=== PATIENT | female | born 1930 | race Caucasian/White ===

== ENCOUNTER 2016-04-30 10:17 | Inpatient (IN) | payer OTHER ==
[~2016-04-30] VITALS: Ht 162.6 cm; Wt 72.6 kg
--- NOTE | 2016-04-30 10:23 | NUR ---
PT C/O HAVING A FEVER AND CONSISTANT DIARRHEA. PT WAS GIVEN FLAGY LAST SUNDAY AND LAST TAKEN SUNDAY PT WAS FINE FOR A COUPLE OF DAYS AND THEN LAST EVENING BEGAN HAVING DIARRHEA AGAIN AND A SLIGHT FEVER. PT HAD FEVER OF 101.5. PT WAS GIVEN A ASA THIS AM AND TEMP WENT DOWN TO 99.0. PT WAS ALSO ON CIPRO FOR A UTI A FEW WEEKS AGO.
[2016-04-30] MEDS ORDERED: FLUOXETINE HCL20 M2 PO (10:26)
[2016-04-30] MEDS ORDERED: LEVOTHYROXINE75 MCG PO (10:27)
[2016-04-30] MEDS ORDERED: DAILY MULTIPLE1 EACH PO (10:27)
[2016-04-30] MEDS ORDERED: METOPROLOL SUCC50 M2 PO (10:27)
--- NOTE | 2016-04-30 10:34 | ED GI/GU/ABDOMINAL COMPLAINT ---
History of Present Illness General Chief Complaint: General Adult Stated Complaint: DIARRHEA/FEVER Source: family Exam Limitations: dementia Vital Signs & Intake/Output Vital Signs & Intake/Output Vital Signs Date Time Temp Pulse Resp B/P Pulse O2 O2 Flow FiO2 Ox Delivery Rate 04/30 1252 96 04/30 1252 99.3 95 16 114/56 96 Room Air 04/30 1129 99.5 04/30 1023 99.5 100 16 126/58 95 Room Air Allergies Coded Allergies: NO KNOWN ALLERGIES (09/02/11) Reconcile Medications Fluoxetine HCl 20 MG CAPSULE 1 CAP PO DAILY MENTAL HEALTH (Reported) Levothyroxine Sodium 75 MCG TABLET 1 TAB PO DAILY AC THYROID (Reported) Metoprolol Succinate 50 MG TAB.ER.24H 1 TAB PO DAILY HEART (Reported) Multivitamin (Daily Multiple Vitamin) 1 EACH TABLET 1 TAB PO DAILY SUPPLEMENT (Reported) Triage Note: PT C/O HAVING A FEVER AND CONSISTANT DIARRHEA. PT WAS GIVEN FLAGY LAST SUNDAY AND LAST TAKEN SUNDAY PT WAS FINE FOR A COUPLE OF DAYS AND THEN LAST EVENING BEGAN HAVING DIARRHEA AGAIN AND A SLIGHT FEVER. PT HAD FEVER OF 101.5. PT WAS GIVEN A ASA THIS AM AND TEMP WENT DOWN TO 99.0. PT WAS ALSO ON CIPRO FOR A UTI A FEW WEEKS AGO. Triage Nurses Notes Reviewed? yes ? N Is pt currently ? No Onset: Gradual Duration: getting worse Timing: recent history Quality/Severity: moderate Severity Numbers: 5 Radiation: no radiation Activities at Onset: none HPI: Patient is an 85-year-old female with past medical history hypertension, depression, hypothyroidism, Alzheimer's who presents emergency room brought in by ambulance with daughter in which patient lives with her daughter in which she states that patient is having loose watery diarrhea production for the past week 8 days ago of fever was noted by daughter which resolved however fever recurred last night and fever continued this morning No blood or melena was noted from the bowel production patient has had a past 24 hours 4-6 episodes of diarrhea Patient was recently prescribed Flagyl for approximately 8 days ago which she finished a course 4 days ago in which this was prescribed by her primary care doctor for the concerns of the diarrhea and fever originally noted 8 days ago Daughter is noting decreased appetite generalized weakness and malaise and unsteady gait 2 days It is noted that approximately 2 weeks ago patient was admitted to [facility] for concerns of urine infection and then was discharged for short -term rehabilitation in which patient currently is residing at her private residence (ISELA SALINAS) Past History Travel History Traveled to [place] past 21 day No Medical History Any Pertinent Medical History? see below for history Cardiovascular: hypertension Psychiatric: depression Endocrine: hypothyroidism Surgical History Surgical History: none Psychosocial History What is your primary language Croatian Tobacco Use: Never used ETOH Use: denies use Illicit Drug Use: denies illicit drug use Family History Hx Contributory? No (ISELA SALINAS) Review of Systems Review of Systems Constitutional: Reports: see HPI, fever, malaise. EENTM: Reports: no symptoms. Respiratory: Reports: no symptoms. Cardiovascular: Reports: no symptoms. GI: Reports: see HPI, diarrhea. Denies: abdominal pain. Genitourinary: Reports: no symptoms. Musculoskeletal: Reports: no symptoms. Skin: Reports: no symptoms. Neurological/Psychological: Reports: no symptoms. Hematologic/Endocrine: Reports: no symptoms. Immunologic/Allergic: Reports: no symptoms. All Other Systems: Reviewed and Negative (ISELA SALINAS) Physical Exam Physical Exam General Appearance: no apparent distress, alert, comfortable Head: atraumatic Eyes: Bilateral: normal appearance, PERRL. Ears, Nose, Throat, Mouth: hearing grossly normal Neck: normal inspection Respiratory: normal breath sounds, chest non-tender Cardiovascular: regular rate/rhythm Gastrointestinal: normal bowel sounds, soft, SUPRAPUBIC POINT TENDERNESS NO REBOUND TENDERNESS NO RIGHT UPPER QUADRANT TENDERNESS NO EPIGASTRIC TENDERNESS Back: normal inspection Extremities: normal range of motion Neurologic/Psych: no motor/sensory deficits Skin: intact, normal color Core Measures ACS in differential dx? No Severe Sepsis Present: No BC x2: Yes Lactic Acid x2: Yes IV ABX Broad Spectrum: Yes NS/LR Started: Yes Septic Shock Present: No (ISELA SALINAS) Progress Differential Diagnosis: AAA, AMI, appendicitis, biliary colic, bowel obstruction , colon cancer, cholecystitis, diverticulitis, endometritis, esophageal varices, gastritis, hepatitis, hernia, hemorrhoids, ischemic bowel, inflamm bowel dis, kidney stone, Glory-Red tear, ovarian cyst, ovarian torsion, pancreatitis, PID/cervicitis, peptic ulcer, PUD/GERD, perforated viscous, SBO, UTI/pyelo Plan of Care: Orders Procedure Date/time Status Regular Diet 05/01 D Active LACTIC ACID 04/30 1348 Active OXYGEN SETUP (GEN) 04/30 1335 Active Saline Lock 04/30 1335 Active Admit to inpatient 04/30 1335 Active Vital Signs 04/30 1335 Active Activity/Ambulation 04/30 1335 Active Code Status 04/30 1335 Active Patient Data 04/30 1322 Active EKG 04/30 1312 Active Intake & Output 04/30 1130 Active C.DIFFICILE 04/30 1050 Active Straight Cath 04/30 1048 Active CULTURE,URINE 04/30 1048 Active CULTURE,STOOL 04/30 1048 Active BLOOD CULTURE 04/30 1048 Active URINALYSIS 04/30 1048 Complete THYROID STIMULATING HORMONE 04/30 1048 Complete MAGNESIUM 04/30 1048 Complete LACTIC ACID 04/30 1048 Complete FREE T4 04/30 1048 Complete COMPREHENSIVE METABOLIC PANEL 04/30 1048 Complete CBC WITHOUT DIFFERENTIAL 04/30 1048 Complete Current Medications Sig/Christina Start time Last Medication Dose Stop Time Status Admin Metronidazole 500 MG ONCE ONE 04/30 1315 AC (Flagyl) 04/30 1414 N/A 1 UNIT (No Carrier) Laboratory Tests 04/30/16 1140: Urinalysis LIGHT H, Urine Color YEL, Urine Clarity CLEAR, Urine pH 6.0, Ur Specific [place] 1.015, Urine Protein TRACE H, Urine Ketones NEG, Urine Nitrite NEG, Urine Bilirubin NEG, Urine Urobilinogen 0.2, Ur Leukocyte Esterase NEG, Ur Microscopic SEDIMENT EXAMINED, Urine RBC 25-50 H, Urine WBC RARE, Ur Epithelial Cells RARE, Urine Hemoglobin MOD H, Urine Glucose NEG 04/30/16 1118: Anion Gap 8, Estimated GFR 53 L, BUN/Creatinine Ratio 8.0, Glucose 101 H, Lactic Acid 1.6, Calcium 8.2 L, Magnesium 1.7, Total Bilirubin 0.6, AST 23, ALT 36, Alkaline Phosphatase 46, Total Protein 5.6 L, Albumin 2.9 L, Globulin 2.7, Albumin/Globulin Ratio 1.1, TSH 1.080, Free T4 1.53, CBC w Diff NO MAN DIFF REQ, RBC 3.68 L, MCV 88.7, MCH 29.2, RDW 14.1, MPV 7.1 L, Gran % 82.2 H, Lymphocytes % 9.4 L, Monocytes % 8.0, Eosinophils % 0.2, Basophils % 0.2, Absolute Granulocytes 10.3 H, Absolute Lymphocytes 1.2, Absolute Monocytes 1.0 H, Absolute Eosinophils 0, Absolute Basophils 0, PUBS MCHC 32.9 L Microbiology 04/30 1140 URINE ROUT: Urine Culture - RECD 04/30 1050 STOOL: Clostridium difficile Toxin A & B - ORD 04/30 1048 STOOL: Stool Culture - ORD 04/30 1048 BLOOD: Blood Culture - ORD 04/30 1048 BLOOD: Blood Culture - ORD Patient currently is at rest in no apparent distress. Patient did develop a fever while in the emergency room which IV acetaminophen was administered along with normal saline. At this time patient shows no concerns of severe sepsis and which I had a long CONVERSATION with the patient's daughter and which due to patient's unresolved diverticulitis previously prescribed with Flagyl and patient's fevers denies weakness fatigue decreased by mouth intake in comorbidities and age the patient will require admission and require IV antibiotics Patient has failed outpatient treatment for presenting diagnosis Discussed admission with Dr. BEEBE who agrees (GURJIT CARR,ISELA) Diagnostic Imaging: Viewed by Me: CT Scan. Radiology Impression: acute abnormality Initial ED EKG: SINUS RHYTHM NOTED 94 BPM Prior EKG: unchanged Comments: PATIENT: ANSHUL LUNA PRESENT AGE: 85 PATIENT ACCOUNT NO: [id number] : 32 LOCATION: [facility] ORDERING PHYSICIAN: ISELA CARR SERVICE DATE: 04/30/16 EXAM TYPE: CAT - CT ABD & PELVIS W/O IV CONTRAS EXAMINATION: CT ABDOMEN AND PELVIS WITHOUT CONTRAST CLINICAL INFORMATION: Abdominal pain and diarrhea. Evaluate for toxic megacolon. COMPARISON: CT scan of the abdomen and pelvis dated 11/21/2006 and renal ultrasound dated 11/21/2006. TECHNIQUE: Multidetector volumetric imaging was performed from the superior aspect of the liver through the pubic symphysis. Sagittal and coronal reformatted images were obtained on the technologist workstation. DLP: 408.11 mGy-cm. FINDINGS: LUNG BASES: The visualized lung bases are unremarkable. LIVER, GALLBLADDER, AND BILIARY TREE: The liver is normal in size, shape, and attenuation. No focal hepatic lesion on noncontrast imaging. The low-attenuation mass previously seen in the left lobe of the liver is not appreciated on noncontrast study. There is a tiny calcification along the capsular the liver dome. No biliary ductal dilatation is present. The gallbladder is well distended and unremarkable with no evidence of radiopaque gallstones, gallbladder wall thickening, or obvious pericholecystic inflammatory changes. PANCREAS, SPLEEN, ADRENAL GLANDS: There is a chronic peripheral 1.4 x 1.0 cm rim calcified subcapsular mass in the spleen, similar to the prior study, likely sequelae of previous infarct or injury. Spleen otherwise unremarkable. Pancreas and both adrenal glands unremarkable on noncontrast imaging. KIDNEYS AND URETERS: The kidneys are normal in size, shape, and attenuation. No hydronephrosis, hydroureter, or renal/ureteral calculi seen. No perinephric stranding. BLADDER: Partially distended and unremarkable. GASTROINTESTINAL TRACT: There is a moderate size retrocardiac hiatal hernia, containing the gastric fundus. The small loops are decompressed and are unremarkable. There is moderate sigmoid colonic diverticulosis with mild thickening of the sigmoid colon wall and mild surrounding fat stranding, consistent with mild acute diverticulitis. Remainder of the colon is unremarkable. The appendix is not discretely visualized. ABDOMINAL WALL: There is a tiny fat-containing umbilical hernia. LYMPH NODES, VASCULAR: No significant abdominal or pelvic adenopathy or free fluid collection is seen. Abdominal aorta is normal in caliber and demonstrates severe atherosclerotic calcifications, which also involve several of the branch vessels. PELVIC VISCERA: Unremarkable. OSSEOUS STRUCTURES: Mild lumbar dextroscoliosis is seen with severe degenerative disc disease throughout the lumbar spine. Diffuse osteopenia is present. Prominent Schmorl's nodes are noted at T12, L1 L1 and L2. IMPRESSION: 1. Mild sigmoid colonic diverticulitis. No evidence of perforation, abscess or bowel obstruction. 2. No evidence of toxic megacolon. 3. Previously seen small low-attenuation mass in the left lobe of liver not identified on current noncontrast exam. 4. Moderate size retrocardiac hiatal hernia and tiny fat-containing umbilical hernia. 5. Severe atherosclerotic vascular calcifications. (ISELA SALINAS) Departure Departure Disposition: STILL A PATIENT Condition: Stable Clinical Impression Primary Impression: Diverticulitis Referrals: MELCHOR PEREZ,PARISH (PCP/Family) Departure Forms: Customer Survey General Discharge Information Admission Note Spoke With: SHERI SMITH MD Documentation of Exam: Documentation of any treatments & extenuating circumstances including Concerns Regarding Discharge (functional status, medication knowledge or non-compliance, living conditions, etc.) that warrant an admission rather than observation: [ Discussed patient with Dr. SMITH who agrees with general medicine admission for concerns of diverticulitis in which patient has failed outpatient treatment with previously prescribed antibiotics. Patient requires IV antibiotics, GI consultation, IV Fluid Resuscitation, Blood Cultures Currently Pending. Outpatient Treatment at This Time Would Be Medically Harmful] (ISELA SALINAS) PA/STERILE PROCESS TECH Co-Sign Statement Statement: ED Attending supervision documentation- x I saw and evaluated the patient. I have also reviewed all the pertinent lab results and diagnostic results. I agree with the findings and the plan of care as documented in the PA's/STERILE PROCESS TECH's documentation. [] I have reviewed the ED Record and agree with the PA's/STERILE PROCESS TECH's documentation. [] Additions or exceptions (if any) to the PAs/STERILE PROCESS TECH's note and plan are summarized below: [] (CONCEPCIÓN PEREZ,IKER) Critical Care Note Critical Care Note Critical Care Time: 30-74 min (ISELA SALINAS)
[2016-04-30 11:25] LABS: ABSOLUTE BASOPHIL COUNT 0 /CUMM (0.0-0.2); ABSOLUTE EOSINOPHIL COUNT 0 /CUMM (0.0-0.7); ABSOLUTE GRANULOCYTE CT 10.3 /CUMM (1.4-6.5); ABSOLUTE LYMPH COUNT 1.2 /CUMM (1.2-3.4); BASOPHIL % 0.2 % (0.0-2.0); EOSINOPHIL % 0.2 % (0-5); GRANULOCYTE % 82.2 % (42.2-75.2); HEMATOCRIT 32.6 % (37-47); MEAN CORPUSCULAR HGB 29.2 PG (27.0-31.0); MEAN CORPUSCULAR HGB CONC 32.9 G/DL (33.0-37.0); MEAN CORPUSCULAR VOLUME 88.7 FL (81.0-99.0); MEAN PLATELET VOLUME 7.1 FL (7.4-10.4); PLATELET COUNT 239 /CUMM (130-400); RBC DISTRIBUTION WIDTH 14.1 % (11.5-14.5); RED BLOOD CELL CT 3.68 /CUMM (4.20-5.40); WHITE BLOOD CELL COUNT 12.5 /CUMM (4.8-10.8)
--- NOTE | 2016-04-30 11:29 | NUR ---
IV ESTABLISHED PT RECEIVING IV TYLENOL FOR FEVER
--- NOTE | 2016-04-30 11:41 | NUR ---
ST. CATH URINE OBTAINED
--- NOTE | 2016-04-30 12:03 | NUR ---
PT TO CAT SCAN
--- NOTE | 2016-04-30 13:00 | CT SCAN REPORT ---
EXAMINATION: CT ABDOMEN AND PELVIS WITHOUT CONTRAST CLINICAL INFORMATION: Abdominal pain and diarrhea. Evaluate for toxic megacolon. COMPARISON: CT scan of the abdomen and pelvis dated 11/21/2006 and renal ultrasound dated 11/21/2006. TECHNIQUE: Multidetector volumetric imaging was performed from the superior aspect of the liver through the pubic symphysis. Sagittal and coronal reformatted images were obtained on the technologist workstation. DLP: 408.11 mGy-cm. FINDINGS: LUNG BASES: The visualized lung bases are unremarkable. LIVER, GALLBLADDER, AND BILIARY TREE: The liver is normal in size, shape, and attenuation. No focal hepatic lesion on noncontrast imaging. The low-attenuation mass previously seen in the left lobe of the liver is not appreciated on noncontrast study. There is a tiny calcification along the capsular the liver dome. No biliary ductal dilatation is present. The gallbladder is well distended and unremarkable with no evidence of radiopaque gallstones, gallbladder wall thickening, or obvious pericholecystic inflammatory changes. PANCREAS, SPLEEN, ADRENAL GLANDS: There is a chronic peripheral 1.4 x 1.0 cm rim calcified subcapsular mass in the spleen, similar to the prior study, likely sequelae of previous infarct or injury. Spleen otherwise unremarkable. Pancreas and both adrenal glands unremarkable on noncontrast imaging. KIDNEYS AND URETERS: The kidneys are normal in size, shape, and attenuation. No hydronephrosis, hydroureter, or renal/ureteral calculi seen. No perinephric stranding. BLADDER: Partially distended and unremarkable. GASTROINTESTINAL TRACT: There is a moderate size retrocardiac hiatal hernia, containing the gastric fundus. The small loops are decompressed and are unremarkable. There is moderate sigmoid colonic diverticulosis with mild thickening of the sigmoid colon wall and mild surrounding fat stranding, consistent with mild acute diverticulitis. Remainder of the colon is unremarkable. The appendix is not discretely visualized. ABDOMINAL WALL: There is a tiny fat-containing umbilical hernia. LYMPH NODES, VASCULAR: No significant abdominal or pelvic adenopathy or free fluid collection is seen. Abdominal aorta is normal in caliber and demonstrates severe atherosclerotic calcifications, which also involve several of the branch vessels. PELVIC VISCERA: Unremarkable. OSSEOUS STRUCTURES: Mild lumbar dextroscoliosis is seen with severe degenerative disc disease throughout the lumbar spine. Diffuse osteopenia is present. Prominent Schmorl's nodes are noted at T12, L1 L1 and L2. IMPRESSION: 1. Mild sigmoid colonic diverticulitis. No evidence of perforation, abscess or bowel obstruction. 2. No evidence of toxic megacolon. 3. Previously seen small low-attenuation mass in the left lobe of liver not identified on current noncontrast exam. 4. Moderate size retrocardiac hiatal hernia and tiny fat-containing umbilical hernia. 5. Severe atherosclerotic vascular calcifications.
--- NOTE | 2016-04-30 14:21 | NUR ---
IV ABX DIRECTED STOOL SPEC. SENT
--- NOTE | 2016-04-30 14:43 | NUR ---
PT HAS BED ASSIGNMENT 213-1
--- NOTE | 2016-04-30 14:43 | History & Physical ---
SWATHI PEREZ,ELIZABETH 04/30/16 1442: General Information and HPI MD Statement: I have seen and personally examined ANSHUL LUNA and documented this H&P. The patient is a 85 year old F who presented with a patient stated chief complaint of [diarrhea and fever]. Source of Information: patient, old records History of Present Illness: This is a 84-year-old female with a past medical history of hypertension, Alzheimer's disease, hypothyroidism who presented to the [facility] emergency department with persistent diarrhea and fever. The patient recently was admitted to [facility] from 04/13/2016 to 04/15/2016 for urinary tract infection and fall. At that time she was treated for 3 days of by mouth ciprofloxacin and discharged to the rehabilitation. After that she started having diarrhea and was then treated for supposedly C. difficile with by mouth Flagyl for 5 days which was completed on 04/25/2016. Today in the morning the patient felt febrile again and she had persistent diarrhea with mild abdominal discomfort. She noticed that her appetite has also decreased. She didn't have any episodes of vomiting or diarrhea. She was brought to the emergency department by her daughter. NSR the patient the patient was awake alert oriented and was not in any discomfort. Allergies/Medications Allergies: Coded Allergies: NO KNOWN ALLERGIES (09/02/11) Home Med list Fluoxetine HCl 20 MG CAPSULE 1 CAP PO DAILY MENTAL HEALTH (Reported) Levothyroxine Sodium 75 MCG TABLET 1 TAB PO DAILY AC THYROID (Reported) Metoprolol Succinate 50 MG TAB.ER.24H 1 TAB PO DAILY HEART (Reported) Multivitamin (Daily Multiple Vitamin) 1 EACH TABLET 1 TAB PO DAILY SUPPLEMENT (Reported) Compliance With Home Meds: GOOD Past History Travel History Traveled to [place] past 21 day No Medical History Cardiovascular: hypertension Psychiatric: depression Endocrine: hypothyroidism Surgical History Surgical History: none Past Family/Social History Family History Relations & Conditions if any Relation not specified for: FH: hypertension Psychosocial History Where do you live? Home Who Do You Live With? child Services at Home: None Smoking Status: Never Smoked ETOH Use: denies use Illicit Drug Use: denies illicit drug use Review of Systems Review of Systems Constitutional: Reports: see HPI. Respiratory: Denies: cough, hemoptysis, orthopnea, short of breath. GI: Reports: abdominal pain, diarrhea, nausea. Denies: constipation, vomiting. Genitourinary: Denies: discharge, dysuria, frequency, hematuria. Musculoskeletal: Denies: see HPI, back pain, gout. Skin: Denies: change in skin color, change in hair/nails, erythema. Exam & Diagnostic Data Last 24 Hrs of Vital Signs/I&O Vital Signs Date Time Temp Pulse Resp B/P Pulse O2 O2 Flow FiO2 Ox Delivery Rate 04/30 1252 96 04/30 1252 99.3 95 16 114/56 96 Room Air 04/30 1230 99.1 04/30 1129 99.5 04/30 1023 99.5 100 16 126/58 95 Room Air Intake & Output 04/30 1600 04/30 0800 04/30 0000 Intake Total 100 Output Total Balance 100 Intake, IV 100 Patient 174 lb Weight Physical Exam General Appearance Alert, Oriented X3, Cooperative Skin No Rashes, No Breakdown HEENT Atraumatic, PERRLA Neck Supple, No JVD, No thryomegaly Lymphatic Axillary nl, Cervical nl Cardiovascular Regular Rate, Normal S1, Normal S2 Lungs Clear to Auscultation, Normal Air Movement Abdomen Normal Bowel Sounds, Soft, No Tenderness, No Hepatospenomegaly Neurological Normal Gait, Normal Speech, Strength at 5/5 X4 Ext Extremities No Clubbing, No Cyanosis, No Edema Assessment/Plan Assessment: Past medical history of hypertension, hypothyroidism, as I'm his disease who presented to the [facility] with persistent diarrhea and slight abdominal pain. The patient was recently treated for UTI and possibly C. difficile for total of 5 days? Vitals at the time of admission shows Temperature of 100.3, blood pressure 113/53, respiration rate of 18, pulse rate of 92 WBC 12.5,, hemoglobin of 10.7, hematocrit of 32.6. CT Pelvis showed: 1. Mild sigmoid colonic diverticulitis. No evidence of perforation, abscess or bowel obstruction. 2. No evidence of toxic megacolon. 3. Previously seen small low-attenuation mass in the left lobe of liver not identified on current noncontrast exam. 4. Moderate size retrocardiac hiatal hernia and tiny fat-containing umbilical hernia. 5. Severe atherosclerotic vascular calcifications. Assessment 1. Acute diverticulitis 2 suspicion of acute C. difficile colitis considering the patient has acute diarrhea and elevated WBC in the setting of recent antibiotics use 3. Chronic hypothyroidism 4. Chronic hypertension History of depression PLAN: Plan admit the patient to general medicine floor We will send blood cultures, urine cultures and stool for C. difficile We will start the patient on IV ciprofloxacin 400 mg every 12 and IV Flagyl 500 mg every 8 IV normal saline at 75 mL per hour Bowel rest and nothing by mouth and then reassses in am [facility] Records were verified from [facility] but the need for the patient to be on 5 days of metronidazole recently is still not clear, need further evaluation by the patient's primary care physician(dr Tamiko roche) Continue with levothyroxine and fluoxetine DVT prophylaxis at all times PAIN PATHWAYS FULL CODE. As Ranked By This Provider Problem List: 1. Diverticulitis Core Measures/Miscellaneous Acute Coronary Syndrome ACS Diagnosis: No Cerebrovascular Accident CVA/TIA Diagnosis: No Congestive Heart Failure CHF Diagnosis: No Venous Thromboembolism VTE Risk Factors: Age > 40, Cancer/chemo/oth therapy VTE Prophylaxis Ordered Inpt: Pharm- Lovenox No Mech VTE prophylaxis d/t: No contraindications No VTE Pharm Prophylaxis d/t: No contraindications VTE Diagnosis: No VTE Type: NONE VTE Confirmed by (Test): NONE Severe Sepsis Severe Sepsis Present: No BC x2: Yes Lactic Acid x2: Yes IV ABX Broad Spectrum: Yes NS/LR Started: Yes Septic Shock Septic Shock Present: No Miscellaneous Documentation Attending Case Discussed With: SHERI SMITH MD Primary Care Physician: TAMIKO ROCHE MD Patient sees these Specialists NONE Level of Patient Care: General Medicine SHERI SMITH MD 04/30/162: Attending MD Review Statement Attending Statement Attending MD Statement: examined this patient, discuss w/resident/PA/EVS ATTENDANT, agreed w/resident/PA/EVS ATTENDANT, reviewed EMR data (avail) Attending Assessment/Plan: 85F PMH HTN, GERD, Alzheimer's dementia, recently discharged from [facility] 04/15 after treatment for UTI with Cipro and fall, with outpatient treatment with Flagyl for diarrhea (no documented positive C.diff test), presenting with 4 days of fever and persistent diarrhea, found to have acute diverticulitis on CT abdomen. Mild abdominal pain, soft abdomen, febrile 100.5, WBC 12.3, normal renal function, no evidence of perforation. 1. Acute diverticulitis 2. Infectious diarrhea 3. Alzheimer's dementia 4. Neutrophilia Plan - Admit to general medicine - Gentle IV hydration - NPO overnight - Start Ceftriaxone and Flagyl - Send C.diff - Send stool and blood cultures - Continue home medications - Serial abdominal exams - DVT PPx
--- NOTE | 2016-04-30 15:20 | NUR ---
REPORT GIVEN TO RAJINDER AUGUSTIN
[2016-04-30 16:00] VITALS: BP 128/50
--- NOTE | 2016-04-30 16:12 | NUR ---
REPORT GIVEN TO DEMETRIA YO. [employer] CALLED FOR PT TRANSPORT.
--- NOTE | 2016-04-30 16:13 | NUR ---
PHARMACY CALLED TO RE-TIME ROCPEHIN AND FLAGYL LAST GIVEN AT 1419. DOSE ORDERED FOR 1600 NOT GIVEN BY THIS RN. NS HUNG AT 75ML/HR AT THIS TIME.
--- NOTE | 2016-04-30 19:16 | Admission Certification ---
Admission Certification Certification Statement - As attending physician, I certify that at the time of - admission, based on clinical presentation, severity of - symptoms, need for further diagnostic testing and - therapeutic interventions, and risk of adverse outcomes - without in-hospital treatment, in my clinical assessment, - this patient requires an acute hospital stay for a minimum - of two nights or longer. I have also considered psychsocial - factors such as support system, advanced age, financial - issues, cognitive issues, and failed out-patient treatments, - past re-admission history, safety of patient, and lack of - compliance as applicable. Specific rationale supporting this admission is: Acute diverticulitis failing outpatient therapy
[2016-04-30 23:53] VITALS: BP 112/40; BP 128/42
[2016-05-01 05:26] VITALS: BP 208/84
--- NOTE | 2016-05-01 05:34 | Event Note ---
Event Note Event Note: Situation Rapid response called at around 5:50am in the setting of tachycarida and high blood pressure. Brief: * Patient is admitted with diverticulitis and questionable C.diff, started on IV ceftriaxone and flagyl. However today morining she is found to have a BP of 208/ 84mmHg with HR of 138, Temp of 101.9 on room air. A rapid response is called. * Patient is moaning and mentating fine, unable to answer questions. * Upon examination found to have rapid pulse, regular, abdominal guarding present with hyperactive bowel sounds. She had passed stool in the bed ( incontinent) during examination. EKG revealed sinus tachycardia. A single dose of IV metoprolol 5mg along IV Tylenol is given with a quality assurance monitor body attached. A repeat vitals after 5min reveled BP of 164/78mmHg with HR of 100. She started responding to commands, alert and oriented. Assessment and Plan 1. Suspected worsening of her bowel inflammation vs abscess in the abdomen 2. A set of labs including CBC, ICU bundle, Troponin and EKG, lactic acid are requested. 3. CT abdomen to assess any acute complications including perforation 4. Patient is transferred to ICU for close monitoring of vitals. family is updated about the transfer. The above plan is in agreement with my resident parviz and myself (taye)
[2016-05-01 06:00] VITALS: BP 164/78
--- NOTE | 2016-05-01 06:02 | NUR ---
0525 PATIENT APPEARED RESTLESS, CONFUSION/AMS AT BASELINE, RESP RATE OF 44, HR 138, O2 93%, BP 208/84, TEMP 103.5 RECTAL. RAPID RESPONSE CALLED. COMPUTERIZED MILL MILL RECORDER CHIDI, RESIDENTS REBEL AND DUNCAN IN ROOM TO SEE PATIENT. ICU NURSE ADMINISTERED IV LOPRESSOR. 0600 HR 102, BP 164/78, RESP 38.
--- NOTE | 2016-05-01 07:00 | NUR ---
PATIENT TRANSPORTED TO CAT SCAN WITH THIS NURSE AND MONITOR FROM 2N.TO ICU [address] SCAN. PATIENT ALERT.ORIENTED TO PERSON. FORGETS SHE IS IN THE HOSPITAL.MONITOR SINUS RHYTHM WITH PVCS.MANUAL GM=752/50.TEMP=98.3.
--- NOTE | 2016-05-01 07:27 | CT SCAN REPORT ---
EXAMINATION: CT ABDOMEN AND PELVIS WITHOUT CONTRAST CLINICAL INFORMATION: Abdominal pain and diarrhea. Suspected diverticulitis. COMPARISON: CT abdomen and pelvis 04/30/2016. TECHNIQUE: Multidetector volumetric imaging was performed from the superior aspect of the liver through the pubic symphysis. Sagittal and coronal reformatted images were obtained on the technologist's workstation. The study is limited by artifact from the patient's arms overlying the abdomen. DLP: 473.70 mGy-cm. FINDINGS: LUNG BASES: The lung bases are clear. There is minor linear atelectasis at the left base. Coronary artery calcification is seen. LIVER, GALLBLADDER, AND BILIARY TREE: The liver is normal in size, shape, and attenuation. No focal hepatic lesion or biliary ductal dilatation is present. The gallbladder is distended with no manifestations of gallbladder wall thickening or pericholecystic fluid. PANCREAS: Unremarkable. SPLEEN: The spleen is unremarkable with a unchanged focal calcification in the lateral margin of the spleen. ADRENAL GLANDS: Unremarkable. KIDNEYS AND URETERS: The kidneys are normal in size, shape, and attenuation. No hydronephrosis, hydroureter, or calculi seen. No perinephric stranding. BLADDER: Unremarkable. GASTROINTESTINAL TRACT: Moderate hiatal hernia is demonstrated without change. No evidence of bowel obstruction. Moderate diverticulosis is seen most notable in the sigmoid colon. There is mild thickening of the sigmoid colon. There is mild soft tissue stranding lateral to the proximal sigmoid colon without other well-defined features of diverticulitis. No evidence of extraluminal air or fluid collections. There is a suggestion of mild thickening of the cecum and ascending colon. ABDOMINAL WALL: No significant hernia is appreciated. LYMPH NODES: Normal. VASCULAR: Moderately extensive vascular calcification is seen with mild ectasia of the abdominal aorta. No interval change. PELVIC VISCERA: Unremarkable. OSSEOUS STRUCTURES: Multilevel degenerative changes are again seen in the lumbar spine. IMPRESSION: 1. Moderate diverticulosis most notable in the sigmoid colon. Mild soft tissue stranding could reflect subtle manifestations of diverticulitis. There are no manifestations of extraluminal fluid collection or extraluminal air. 2. Mild thickening of the sigmoid colon is also associated with mild thickening of the right colon and the findings could also reflect manifestations of a colitis unrelated to diverticular disease. 3. No significant change from prior. The current study is limited by artifact from the patient's arms.
[2016-05-01 08:00] VITALS: BP 110/82
[2016-05-01 08:16] LABS: ABSOLUTE BASOPHIL COUNT 0 /CUMM (0.0-0.2); ABSOLUTE EOSINOPHIL COUNT 0 /CUMM (0.0-0.7); ABSOLUTE GRANULOCYTE CT 16.9 /CUMM (1.4-6.5); ABSOLUTE LYMPH COUNT 0.7 /CUMM (1.2-3.4); BASOPHIL % 0.1 % (0.0-2.0); EOSINOPHIL % 0 % (0-5); GRANULOCYTE % 90.7 % (42.2-75.2); MEAN CORPUSCULAR HGB 29.7 PG (27.0-31.0); MEAN CORPUSCULAR HGB CONC 33.5 G/DL (33.0-37.0); MEAN CORPUSCULAR VOLUME 88.6 FL (81.0-99.0); MEAN PLATELET VOLUME 7.7 FL (7.4-10.4); PLATELET COUNT 225 /CUMM (130-400); RBC DISTRIBUTION WIDTH 14.4 % (11.5-14.5); RED BLOOD CELL CT 3.39 /CUMM (4.20-5.40); WHITE BLOOD CELL COUNT 18.7 /CUMM (4.8-10.8)
--- NOTE | 2016-05-01 10:14 | Cons- CRCU ---
CRISTINE PEREZ,[facility] 05/01/16 1014: General Information and HPI Consulting Request Date of Consult: 05/01/16 Reason for Consult: Pt has diverticulitis overnight was found to have BP of 208/84mmHg with HR of 138, Temp of 101.9 Source of Information: patient, old records Exam Limitations: no limitations History of Present Illness: 84/F with PMH of HTN, Alzheimer's disease, hypothyroidism who presented with persistent diarrhea and fever. The patient recently discharged from [facility] (04/15/2016) after she was treated with ciprofloxacin for UTI. Patient returned to the hospital soon after complaining of diarrhea and was treated for C. difficile with by mouth Flagyl for 5 days which was completed on 04/25/2016.( no documented positive C.diff test). On the day of admission patient presented with watery diarrhea for one week, felt febrile, started to complaining of abdominal discomfort, and poor appetite. Patient was initially admitted to the general medicine floor, after she was found to have diverticulitis on CT. That time her vitals was within normal limits except her temperature which was 100.3. Stool and blood cultures was sent , C. difficile was sent, patient was nothing by mouth for bowel rest, she was started on Ceftriaxone and Flagy Allergies/Medications Allergies: Coded Allergies: NO KNOWN ALLERGIES (09/02/11) Home Med List: Fluoxetine HCl 20 MG CAPSULE 1 CAP PO DAILY MENTAL HEALTH (Reported) Levothyroxine Sodium 75 MCG TABLET 1 TAB PO DAILY AC THYROID (Reported) Metoprolol Succinate 50 MG TAB.ER.24H 1 TAB PO DAILY HEART (Reported) Multivitamin (Daily Multiple Vitamin) 1 EACH TABLET 1 TAB PO DAILY SUPPLEMENT (Reported) Review of Systems Review of Systems Constitutional: Reports: see HPI. Denies: chills, fever. Cardiovascular: Denies: chest pain, palpitations, peripheral edema. Respiratory: Denies: cough, short of breath, wheezing. GI: Reports: diarrhea. Denies: abdominal pain, constipation, distention, nausea, vomiting. Genitourinary: Denies: dysuria. Past History Travel History Traveled to [place] past 21 day No Medical History Neurological: Alzheimer's disease Cardiovascular: hypertension Respiratory: NONE Gastrointestinal: diverticulitis Hepatic: NONE Renal: NONE Musculoskeletal: falls Psychiatric: depression Endocrine: hypothyroidism Blood Disorders: NONE Cancer(s): NONE Surgical History Surgical History: 1 Family History Relations & Conditions If Any: Relation not specified for: FH: hypertension Psychosocial History Where Do You Live? Home Who Do You Live With? child Services at Home: None Smoking Status: Never Smoked ETOH Use: denies use Illicit Drug Use: denies illicit drug use Exam & Diagnostic Data Last 24 Hrs of Vital Signs/I&O Vital Signs Date Time Temp Pulse Resp B/P Pulse O2 O2 Flow FiO2 Ox Delivery Rate 05/01 0854 97 Nasal 2.0L Cannula 05/01 0600 102 38 164/78 94 Room Air Room Air 05/01 0551 103.0 05/01 0550 134 204/90 05/01 0533 93 Room Air 05/01 0526 103.5 138 44 208/84 93 Room Air Room Air 04/30 2353 99.2 107 18 112/40 96 Room Air 04/30 1600 994.0 95 19 128/50 95 Room Air 04/30 1559 100.5 04/30 1520 100.3 92 18 113/53 97 Room Air 04/30 1252 96 04/30 1252 99.3 95 16 114/56 96 Room Air 04/30 1230 99.1 Intake & Output 05/01 1600 05/01 0800 05/01 0000 Intake Total 450 465 Output Total 200 Balance 250 465 Intake, IV 450 225 Intake, Oral 240 Output, Urine 200 Patient 72.575 kg Weight Physical Exam General Appearance: well developed/nourished, no apparent distress, alert, awake , comfortable Head: atraumatic, normal appearance Eyes: Bilateral: normal appearance, PERRL, EOMI. Neck: normal inspection Respiratory: normal breath sounds, chest non-tender Cardiovascular: regular rate/rhythm Gastrointestinal: soft, non-tender, incrase bowel sound Extremities: normal inspection, no edema Neurologic/Psych: awake, alert, patinet is has baseline dementia Last 48 Hrs of Labs/Ovidio: Laboratory Tests 05/01/16 0945: Lactic Acid 1.7 05/01/16 0615: Lactic Acid Cancelled, Troponin I Cancelled 05/01/16 0615: Sodium Cancelled, Potassium Cancelled, Chloride Cancelled, Carbon Dioxide Cancelled, Anion Gap Cancelled, BUN Cancelled, Creatinine Cancelled, BUN/ Creatinine Ratio Cancelled 05/01/16 0615: Anion Gap 12, Estimated GFR 43 L, BUN/Creatinine Ratio 7.5, Lactic Acid 2.3 H, Phosphorus 2.8, Magnesium 1.4 L, Total Bilirubin 0.5, Direct Bilirubin 0.3, AST 17, ALT 24, Alkaline Phosphatase 50, Troponin I 0.05, Total Protein 5.1 L, Albumin 2.6 L, CBC w Diff MAN DIFF ORDERED, RBC 3.39 L, MCV 88.6, MCH 29.7, RDW 14.4, MPV 7.7, Gran % 90.7 H, Lymphocytes % 3.6 L, Monocytes % 5.6, Eosinophils % 0, Basophils % 0.1, Absolute Granulocytes 16.9 H, Segmented Neutrophils 57, Band Neutrophils 31 H, Absolute Lymphocytes 0.7 L, Lymphocytes 4 L, Monocytes 8, Absolute Monocytes 1.0 H, Absolute Eosinophils 0, Absolute Basophils 0, Platelet Estimate VERIFIED BY SMEAR, Normocytic RBCs VERIFIED, Normochromic RBCs VERIFIED, PUBS MCHC 33.5 04/30/16 2110: Lactic Acid 1.2 04/30/16 1140: Urinalysis LIGHT H, Urine Color YEL, Urine Clarity CLEAR, Urine pH 6.0, Ur Specific [place] 1.015, Urine Protein TRACE H, Urine Ketones NEG, Urine Nitrite NEG, Urine Bilirubin NEG, Urine Urobilinogen 0.2, Ur Leukocyte Esterase NEG, Ur Microscopic SEDIMENT EXAMINED, Urine RBC 25-50 H, Urine WBC RARE, Ur Epithelial Cells RARE, Urine Hemoglobin MOD H, Urine Glucose NEG 04/30/16 1118: Anion Gap 8, Estimated GFR 53 L, BUN/Creatinine Ratio 8.0, Glucose 101 H, Lactic Acid 1.6, Calcium 8.2 L, Magnesium 1.7, Total Bilirubin 0.6, AST 23, ALT 36, Alkaline Phosphatase 46, Total Protein 5.6 L, Albumin 2.9 L, Globulin 2.7, Albumin/Globulin Ratio 1.1, TSH 1.080, Free T4 1.53, CBC w Diff NO MAN DIFF REQ, RBC 3.68 L, MCV 88.7, MCH 29.2, RDW 14.1, MPV 7.1 L, Gran % 82.2 H, Lymphocytes % 9.4 L, Monocytes % 8.0, Eosinophils % 0.2, Basophils % 0.2, Absolute Granulocytes 10.3 H, Absolute Lymphocytes 1.2, Absolute Monocytes 1.0 H, Absolute Eosinophils 0, Absolute Basophils 0, PUBS MCHC 32.9 L Assessment/Plan Impression/Plan: Respiratory: This morning patient was desaturating to 82 while sleeping, when we woke her up saturation increased to 96. We are not sure if it's a measurement issue or a real desaturation. Patient now saturating 95 room air, we will follow-up off oxygen for now * Patient will be on oxygen as needed Infectious Diseases: Patient has a diverticulitis as proven by CT abdomen. Her white blood cell was initially 12.5 however this morning went up to 18.7. Lactic acid was initially within normal limits however this morning went up to 2.3, we tend it to 1.7. Repeat CT ruled out perforation, abscess formation, or any other complication. She received antibiotic month and half ago, we will cover C. difficile until the results is back. Her C. difficile results came back positive even though she received a full course of Flagyl as an outpatient and she was placed on Flagyl as an inpatient. * Will discontinue ceftriaxone and Flagyl * We'll start patient on vancomycin 125 mg po every 6 hours * ID is on board Cardiovascular: #Chronic hypertension: She was transferred to the ICU because of high blood pressure or fast heartrate (208/84mmHg with HR of 138), however since this morning her heartrate and blood pressure are well controlled. * We'll continue metoprolol XL 50 mg daily Hematology: Patient WBCs increased from 12.5 to 18.7. H&H dropped from 10.7 and 32.6 to 10.1 &30. * The repeat CBC tomorrow Alimentary: Looked under infectious or diarrhea management Metabolic: Creatinine is mildly elevated to 1.2. Her GFR being 43 however her BUN/Cr. is 7.5. pt has diarrhea for few days now. even that her labs doesn't go with dehydration, we still going to repeat RFT in a.m. and decide accordingly * We will replete potassium * We are repeat renal function test tomorrow Neurological: Patient has Alzheimer, she is mildly confused on baseline. Patient also has depression. * We will continue fluoxetine 20 mg daily Endocrinology #hypothyroidism TSH and T4 was within normal limits * We'll continue Levothyroxine 0.075 mg daily by mouth SKI No current issues Diet Clear liquid DVT/Prophylaxis Lovenox 40 mg daily subcutaneous Code Status Full code Consult Acknowledgment - Thank you for your consult request. KENDELL PEREZ,Lety MORALEZ 05/01/161953: General Information and HPI Consulting Request Date of Consult: 05/01/16 Requested By: Dr. Cottrell Source of Information: old records Exam Limitations: dementia Allergies/Medications Current Medications: Current Medications Sig/Christina Start time Last Medication Dose Route Stop Time Status Admin Acetaminophen 1,000 MG ONCE ONE 05/01 0545 DC 05/01 IV 05/01 0546 0551 Acetaminophen 650 MG Q6P PRN 04/30 1445 AC 04/30 PO 1559 Ceftriaxone Sodium 1,000 MG DAILY 04/30 1556 DC 05/01 IV 1008 Enoxaparin Sodium 40 MG DAILY 05/01 1000 AC 05/01 SC 1008 Fluoxetine HCl 20 MG DAILY 05/01 1000 AC 05/01 PO 1659 Levothyroxine Sodium 0.075 MG DAILY AC 05/01 0700 AC 05/01 PO 1659 Magnesium Sulfate 1 GM ONCE ONE 05/01 1330 DC 05/01 Dextrose/Water 100 ML IV 05/01 1729 1742 Metoprolol Succinate 50 MG DAILY 05/01 1000 AC 05/01 PO 1659 Metoprolol Tartrate 5 MG ONCE ONE 05/01 0545 DC 05/01 IV 05/01 0546 0550 Metronidazole 500 MG IQ8 04/30 1600 DC 05/01 N/A 1 UNIT IV 0900 Morphine Sulfate 2 MG Q4P PRN 04/30 1445 AC IV Oxycodone/ 1 TAB Q6P PRN 04/30 1445 AC Acetaminophen PO Potassium Chloride 40 MEQ Q13H 05/01 1030 AC 05/01 Dextrose/Sodium 1,000 ML IV 05/01 2329 1233 Chloride Potassium Chloride 10 MEQ Q1H 05/01 1015 DC 05/01 IV 05/01 1216 1459 Potassium Chloride 40 MEQ ONCE ONE 05/01 0830 DC PO 05/01 0831 Potassium Chloride 20 MEQ Q13H 05/01 0830 DC 05/01 Dextrose/Sodium 1,000 ML IV 05/01 2129 1008 Chloride Sodium Chloride 1,000 ML ONCE ONE 04/30 1545 DC 04/30 IV 05/01 0504 1614 Vancomycin HCl 125 MG Q6 05/01 1800 AC 05/01 PO 1742 Assessment/Plan Other Findings/Comments: I have personally seen and examined the patient. I have discussed the patient with the housestaff. I agree with the above assessment, physical exam and plan. Briefly, the patient is 85-year-old female with a history of dementia who was hospitalized at [place] 2 weeks prior to admission with a UTI treated with ciprofloxacin. She subsequently developed C. difficile and was treated with Flagyl for 5 days. She was admitted to [place] on 04/30/2015 with persistent diarrhea associated with anorexia and abdominal discomfort. She was also febrile. On admission she had a CT of the abdomen and pelvis that showed mild sigmoid colonic diverticulitis noting she was treated with ceftriaxone and Flagyl. Early this morning, the patient was tachycardic and hypertensive with a fever of 103.5. She was transferred to the ICU. A repeat CT demonstrated mild thickening of the sigmoid colon, cecum and ascending colon with mild soft tissue stranding. This afternoon, the patient's stool was found to be C. difficile positive. She is unable to provide any further history secondary to her underlying dementia. She has been evaluated by ID. The patient ceftriaxone and Flagyl has been canceled. She has been started on vancomycin 125 mg every 6 hours. Her blood pressure and heart rate are much better controlled at present. She will continue on IV fluids and we will monitor strict I's and O's. We will monitor the patient's electrolytes and replete as necessary. She will receive metoprolol XL 50 mg daily which now appears to be controlling her blood pressure better. The patient will receive her home medications as well as DVT prophylaxis. Monitor in the CRCU until stable. Consult Acknowledgment - Thank you for your consult request.
--- NOTE | 2016-05-01 14:25 | NUR ---
1000: ATTEMPTED TO GIVEN PATIENT PO POTASSIUM 40 MEQ (PILLS BROKEN IN HALF AND PLACED IN APPLE SAUCE) PATIENT GAGGED MULTIPLE TIMES AND VOMITTED A SMALL AMOUNT OF GREEN BILE. DR. BARLOW AWARE. PATIENT DENIES NAUSEA. POTASSIUM CHANGED TO IV FLUID (W/ 40 MEQ) AND THREE BOLUSES OF 10 MEQ K. PATIENT TOLERATED IV POTASSIUM WELL FOR POTASSIUM OF 3.3. CONTINUING TO MONITOR.
--- NOTE | 2016-05-01 14:30 | NUR ---
1345: CALLED BY MICROBIOLOGY, PATIENT'S STOOL CULTURE SENT YESTERDAY RETURNED POSITIVE FOR C.DIFF. INFORMED DR. COLUNGA WHO WENT TO PATIENT'S ROOM AND REPORTED VALUE TO PATIENT AND DAUGHTER. PATIENT PLACED ON ISOLATION PRECAUTIONS AND FAMILY EDUCATED ON THE IMPORTANCE OF ISOLATION GOWNS/GLOVES AND HAND WASHING. TO CONTINUE MONITORING PATIENT AND ALTER ANTIBIOTICS PER MD AND EMAR.
--- NOTE | 2016-05-01 15:46 | Cons- Infect Disease ---
General Information and HPI Consulting Request Date of Consult: 05/01/16 Requested By: SHERI SMITH MD Reason for Consult: Increasing white blood cell count in a patient with diverticulitis Source of Information: family Exam Limitations: dementia History of Present Illness: This is an 85-year-old woman with a history of dementia, hospitalized at [facility] 2 weeks prior to admission with a urinary tract infection, treated with Ciprofloxacin, discharged to a rehabilitation facility, where she apparently developed diarrhea, which was treated with Flagyl for 5 days, admitted on April 30 with persistent diarrhea, associated with anorexia and abdominal discomfort, and one day of fever. On admission she was initially afebrile but then developed a low-grade fever to 100.5. Laboratory data revealed a white blood cell count of 12.5, BUN/creatinine 8 and 1.0, with normal liver enzymes. Urinalysis 25-50 RBC/rare WBCs. CT of the abdomen and pelvis revealed mild sigmoid colonic diverticulitis. She was begun on Ceftriaxone and Flagyl. Early this morning she was found to be tachycardic and hypertensive, with a fever to 103.5, and was moved into the ICU. A repeat CT scan revealed mild thickening of the sigmoid colon and the cecum and ascending colon, with mild soft tissue stranding lateral to the proximal sigmoid colon without other evidence of diverticulitis. This afternoon stool for C. difficile was found to be positive. She is unable to provide any history secondary to her underlying dementia. She has apparently required straight catheterizations because of inability to void. Allergies/Medications Allergies: Coded Allergies: NO KNOWN ALLERGIES (09/02/11) Home Med List: Fluoxetine HCl 20 MG CAPSULE 1 CAP PO DAILY MENTAL HEALTH (Reported) Levothyroxine Sodium 75 MCG TABLET 1 TAB PO DAILY AC THYROID (Reported) Metoprolol Succinate 50 MG TAB.ER.24H 1 TAB PO DAILY HEART (Reported) Multivitamin (Daily Multiple Vitamin) 1 EACH TABLET 1 TAB PO DAILY SUPPLEMENT (Reported) Past History Travel History Traveled to [place] past 21 day No Medical History Neurological: Alzheimer's disease Cardiovascular: hypertension Respiratory: NONE Gastrointestinal: diverticulitis Hepatic: NONE Renal: NONE Musculoskeletal: falls Psychiatric: depression Endocrine: hypothyroidism Blood Disorders: NONE Cancer(s): NONE History of MRSA: No History of VRE: No History of CDIFF: No Isolation History: Standard Influenza Vaccine: 03/15/16 Surgical History Surgical History: 1 Family History Relations & Conditions If Any: Relation not specified for: FH: hypertension Psychosocial History Where Do You Live? Home Who Do You Live With? child Services at Home: None Smoking Status: Never Smoked ETOH Use: denies use Illicit Drug Use: denies illicit drug use Review of Systems Comments Unobtainable Exam & Diagnostic Data Last 24 Hrs of Vital Signs/I&O Vital Signs Date Time Temp Pulse Resp B/P Pulse O2 O2 Flow FiO2 Ox Delivery Rate 05/01 1200 98 Nasal 2.0L Cannula 05/01 0854 97 Nasal 2.0L Cannula 05/01 0800 98.7 98 26 110/82 96 Room Air Room Air 05/01 0800 96 Room Air Room Air 05/01 0600 102 38 164/78 94 Room Air Room Air 05/01 0551 103.0 05/01 0550 134 204/90 05/01 0533 93 Room Air 05/01 0526 103.5 138 44 208/84 93 Room Air Room Air 04/30 2353 99.2 107 18 112/40 96 Room Air 04/30 1600 994.0 95 19 128/50 95 Room Air 04/30 1559 100.5 Intake & Output 05/01 1600 05/01 0800 05/01 0000 Intake Total 872 450 465 Output Total 325 200 Balance 547 250 465 Intake, IV 772 450 225 Intake, Oral 100 240 Number 2 Bowel Movements Output, 25 Emesis Output, Urine 300 200 Patient 160 lb Weight Physical Exam Other Physical Findings: She is awake and alert in no acute distress. MAXIMUM TEMPERATURE 103.5. Skin reveals no rash. HEENT exam is negative. Neck is supple with no adenopathy. Lungs are clear. Heart regular rhythm with no murmur. Abdomen is soft, nontender with positive bowel sounds. Back no CVA tenderness. Extremities no cyanosis, clubbing or edema. Neuro is without focality. Last 24 Hours of Lab Results: Laboratory Tests 05/01 05/01 05/01 0945 0615 0615 Chemistry Sodium Cancelled Potassium Cancelled Chloride Cancelled Carbon Dioxide Cancelled Anion Gap Cancelled BUN Cancelled Creatinine Cancelled BUN/Creatinine Ratio Cancelled Lactic Acid (0.7 - 2.1 mmol/L) 1.7 Cancelled Troponin I Cancelled 05/01 04/30 0615 2110 Chemistry Sodium (137 - 145 mmol/L) 135 L Potassium (3.5 - 5.1 mmol/L) 3.3 L Chloride (98 - 107 mmol/L) 103 Carbon Dioxide (22 - 30 mmol/L) 20 L Anion Gap (5 - 16) 12 BUN (7 - 17 mg/dL) 9 Creatinine (0.5 - 1.0 mg/dL) 1.2 H Estimated GFR (>60 ml/min) 43 L BUN/Creatinine Ratio (7 - 25 %) 7.5 Lactic Acid (0.7 - 2.1 mmol/L) 2.3 H 1.2 Phosphorus (2.5 - 4.5 mg/dL) 2.8 Magnesium (1.6 - 2.3 mg/dL) 1.4 L Total Bilirubin (0.2 - 1.3 mg/dL) 0.5 Direct Bilirubin (< 0.4 mg/dL) 0.3 AST (14 - 36 U/L) 17 ALT (9 - 52 U/L) 24 Alkaline Phosphatase (<127 U/L) 50 Troponin I (< 0.11 ng/ml) 0.05 Total Protein (6.3 - 8.2 g/dL) 5.1 L Albumin (3.5 - 5.0 g/dL) 2.6 L Hematology CBC w Diff MAN DIFF ORDERED WBC (4.8 - 10.8 /CUMM) 18.7 H RBC (4.20 - 5.40 /CUMM) 3.39 L Hgb (12.0 - 16.0 G/DL) 10.1 L Hct (37 - 47 %) 30.0 L MCV (81.0 - 99.0 FL) 88.6 MCH (27.0 - 31.0 PG) 29.7 RDW (11.5 - 14.5 %) 14.4 Plt Count (130 - 400 /CUMM) 225 MPV (7.4 - 10.4 FL) 7.7 Gran % (42.2 - 75.2 %) 90.7 H Lymphocytes % (20.5 - 51.1 %) 3.6 L Monocytes % (1.7 - 9.3 %) 5.6 Eosinophils % (0 - 5 %) 0 Basophils % (0.0 - 2.0 %) 0.1 Absolute Granulocytes (1.4 - 6.5 /CUMM) 16.9 H Segmented Neutrophils (42.2 - 75.2 %) 57 Band Neutrophils (0.0 - 5.0 %) 31 H Absolute Lymphocytes (1.2 - 3.4 /CUMM) 0.7 L Lymphocytes (20.5 - 51.1 %) 4 L Monocytes (1.7 - 9.3 %) 8 Absolute Monocytes (0.10 - 0.60 /CUMM) 1.0 H Absolute Eosinophils (0.0 - 0.7 /CUMM) 0 Absolute Basophils (0.0 - 0.2 /CUMM) 0 Platelet Estimate (ADEQUATE) VERIFIED BY SMEAR Normocytic RBCs VERIFIED Normochromic RBCs VERIFIED PUBS MCHC (33.0 - 37.0 G/DL) 33.5 Last 24 Hours of Ovidio Results: Blood cultures April 30 negative Blood cultures May 01 pending Stool C. difficile April 30 positive Urine culture April 30 negative Diagnostic Data Recent Imaging Findings: CT of the abdomen and pelvis April 30 revealed mild sigmoid colonic diverticulitis. CT of the abdomen and pelvis May 01 reveals mild thickening of the sigmoid colon and the cecum and ascending colon, with mild soft tissue stranding lateral to the proximal sigmoid colon without other evidence of diverticulitis. Assessment/Plan Assessment/Plan Impression: This is an 85-year-old woman with dementia, recently hospitalized at [facility] where she was treated for a urinary tract infection with Ciprofloxacin, which was apparently complicated by diarrhea, treated with Flagyl, with no further details regarding this available, admitted on April 30 with diarrhea and fever, found on initial CT scan to have diverticulitis but on a follow-up CT scan to have colitis, with stool for C. difficile positive. Her clinical picture is consistent with C. difficile colitis, and her antibiotics will need to be adjusted to optimally cover this. Given her elevated white blood cell count she has severe C. difficile; therefore she will require Vancomycin. She has no evidence of hypotension, ileus or toxic megacolon to suggest severe/complicated C. difficile. She apparently has urinary retention and will require a straight catheterization protocol until this is resolved. Suggestion: 1. Special contact precautions 2. Continue straight catheterization protocol 3. Discontinue Ceftriaxone and Flagyl 4. Begin Vancomycin 125 mg po every 6 hours Consult Acknowledgment - Thank you for your consult request.
[2016-05-01 16:00] VITALS: BP 118/78
--- NOTE | 2016-05-01 22:52 | NUR ---
a/conf.follow commands. kelsey with +cms.no c'o gen discomfort.ivf cont via piv site.incontinent of stools (diarrhea) and perineal care done.pt unable to void and straight cath mod sean clear uo.plan of care reviewed.see icu flowsheets for further details.
[2016-05-02] VITALS: BP 130/70
--- NOTE | 2016-05-02 00:39 | NUR ---
PT ALERT AND ORINETED TO SELF. FOLLOWING COMMAND. DENIES PAIN A THIS TIME. NSR 90'S, MANUAL BP 130/70. SATURATION 97% ON RA, LUNGS SOUND CLEAR. HAD DIARRHEA X 1 AND INCONTINENT OF URINE. KEPT CLEAN AND DRY.
[2016-05-02 05:13] LABS: ABSOLUTE BASOPHIL COUNT 0 /CUMM (0.0-0.2); ABSOLUTE EOSINOPHIL COUNT 0 /CUMM (0.0-0.7); ABSOLUTE GRANULOCYTE CT 19.8 /CUMM (1.4-6.5); ABSOLUTE LYMPH COUNT 1.2 /CUMM (1.2-3.4); ABSOLUTE MONOCYTE COUNT 1.1 /CUMM (0.10-0.60); BASOPHIL % 0 % (0.0-2.0); EOSINOPHIL % 0.1 % (0-5); GRANULOCYTE % 89.2 % (42.2-75.2); MEAN CORPUSCULAR HGB 29.6 PG (27.0-31.0); MEAN CORPUSCULAR HGB CONC 33.3 G/DL (33.0-37.0); MEAN CORPUSCULAR VOLUME 88.9 FL (81.0-99.0); PLATELET COUNT 206 /CUMM (130-400); RBC DISTRIBUTION WIDTH 14.3 % (11.5-14.5); RED BLOOD CELL CT 3.15 /CUMM (4.20-5.40); WHITE BLOOD CELL COUNT 22.1 /CUMM (4.8-10.8)
--- NOTE | 2016-05-02 07:28 | PN- Resident CRCU ---
Subjective HPI/CRCU Issues: Patient was seen and examined. She is laying on bed looks relaxed and comfortable. Patient had multiple overnight nonbloody diarrheal episodes, No other acute overnight events were reported by patient or her nurse. Patient is demented and no accurate review of systems can be obtained. 24 Hour Events: MAXIMUM TEMPERATURE 100.6 Heartrate and blood pressure within normal limits White blood cell increase to 21,000 Objective Vital Signs & I&O Last 8 Hrs of Vitals and I&O: Intake & Output 05/02 1600 05/02 0800 05/02 0000 Intake Total 700 900 Output Total 2 200 Balance 698 700 Intake, IV 600 800 Intake, Oral 100 100 Number 1 Bowel Movements Output, Stool 2 Output, Urine 200 Laboratory Tests 05/02 0355 Chemistry Sodium (137 - 145 mmol/L) 132 L Potassium (3.5 - 5.1 mmol/L) 4.0 Chloride (98 - 107 mmol/L) 107 Carbon Dioxide (22 - 30 mmol/L) 18 L Anion Gap (5 - 16) 8 BUN (7 - 17 mg/dL) 9 Creatinine (0.5 - 1.0 mg/dL) 0.9 Estimated GFR (>60 ml/min) 60 Glucose (65 - 99 mg/dL) 97 Calcium (8.4 - 10.2 mg/dL) 7.2 L Phosphorus (2.5 - 4.5 mg/dL) 1.7 L Magnesium (1.6 - 2.3 mg/dL) 1.9 Total Bilirubin (0.2 - 1.3 mg/dL) 0.3 AST (14 - 36 U/L) 24 ALT (9 - 52 U/L) 33 Albumin (3.5 - 5.0 g/dL) 2.2 L Hematology CBC w Diff MAN DIFF ORDERED WBC (4.8 - 10.8 /CUMM) 22.1 H RBC (4.20 - 5.40 /CUMM) 3.15 L Hgb (12.0 - 16.0 G/DL) 9.3 L Hct (37 - 47 %) 28.0 L MCV (81.0 - 99.0 FL) 88.9 MCH (27.0 - 31.0 PG) 29.6 RDW (11.5 - 14.5 %) 14.3 Plt Count (130 - 400 /CUMM) 206 MPV (7.4 - 10.4 FL) 8.0 Gran % (42.2 - 75.2 %) 89.2 H Lymphocytes % (20.5 - 51.1 %) 5.6 L Monocytes % (1.7 - 9.3 %) 5.1 Eosinophils % (0 - 5 %) 0.1 Basophils % (0.0 - 2.0 %) 0 L Absolute Granulocytes (1.4 - 6.5 /CUMM) 19.8 H Segmented Neutrophils (42.2 - 75.2 %) 79 H Band Neutrophils (0.0 - 5.0 %) 6 H Absolute Lymphocytes (1.2 - 3.4 /CUMM) 1.2 Lymphocytes (20.5 - 51.1 %) 9 L Monocytes (1.7 - 9.3 %) 5 Absolute Monocytes (0.10 - 0.60 /CUMM) 1.1 H Absolute Eosinophils (0.0 - 0.7 /CUMM) 0 Absolute Basophils (0.0 - 0.2 /CUMM) 0 Metamyelocytes (0.0 - 1.0 %) 1 Platelet Estimate (ADEQUATE) ADEQUATE Polychromasia 1+ Poikilocytosis 1+ Ovalocytes 1+ PUBS MCHC (33.0 - 37.0 G/DL) 33.3 Other Body Source Fld Total RBCs Counted (%) 100 Exam General Appearance: well developed/nourished, no apparent distress, alert, awake Head: atraumatic, normal appearance Respiratory: normal breath sounds, chest non-tender, no respiratory distress, quiet respiration, lungs clear Cardiovascular: regular rate/rhythm Gastrointestinal: soft, non-tender, increased BS Extremities: no edema Current Medications: Current Medications Sig/Christina Start time Last Medication Dose Route Stop Time Status Admin Acetaminophen 650 MG Q6P PRN 04/30 1445 AC 04/30 PO 1559 Ceftriaxone Sodium 1,000 MG DAILY 04/30 1556 DC 05/01 IV 1008 Enoxaparin Sodium 40 MG DAILY 05/01 1000 AC 05/02 SC 0957 Fluoxetine HCl 20 MG DAILY 05/01 1000 AC 05/02 PO 0958 Levothyroxine Sodium 0.075 MG DAILY AC 05/01 0700 AC 05/02 PO 0610 Magnesium Sulfate 1 GM ONCE ONE 05/01 1330 DC 05/01 Dextrose/Water 100 ML IV 05/01 1729 1742 Metoprolol Succinate 50 MG DAILY 05/01 1000 AC 05/02 PO 0958 Metronidazole 500 MG IQ8 04/30 1600 DC 05/01 N/A 1 UNIT IV 0900 Morphine Sulfate 2 MG Q4P PRN 04/30 1445 DC IV Oxycodone/ 1 TAB Q6P PRN 04/30 1445 AC Acetaminophen PO Potassium Chloride 40 MEQ Q8H 05/01 2345 DC 05/01 Dextrose/Sodium 1,000 ML IV 2342 Chloride Potassium Chloride 40 MEQ Q13H 05/01 1030 DC 05/01 Dextrose/Sodium 1,000 ML IV 05/01 2329 1233 Chloride Sodium Phosphate 15 mMol ONE ONE 05/02 0745 DC 05/02 Sodium Chloride 250 ML IV 05/02 1148 0958 Vancomycin HCl 125 MG Q6 05/01 1800 AC 05/02 PO 1256 Impression/Plan Impression/Problem List Impression: Respiratory: No current respiratory issues Infectious Diseases: Patient was found to be C. difficile positive. She felt the treatment with Flagyl as an outpatient and even post admission as inpatient * We'll continue vancomycin 125 mg po every 6 hours * ID is on board we will follow his recommendation Cardiovascular: #Chronic hypertension: She was transferred to the ICU because of high blood pressure or fast heartrate (208/84mmHg with HR of 138), however since she was transferred to ICU her vitals was within normal limits and well controlled * We'll continue metoprolol XL 50 mg daily Hematology: Patient WBCs increased from 18.7 to 21. * The repeat CBC tomorrow Alimentary: Looked under infectious or diarrhea management Metabolic: Creatinine was initially elevated to 1.2. However today her creatinine is back to 0.9 * We will replete phosphorous with sodium phosphorous * We are repeat renal function test tomorrow Neurological: Patient has Alzheimer, she is mildly confused on baseline. Patient also has depression. * We will continue fluoxetine 20 mg daily Endocrinology #hypothyroidism TSH and T4 was within normal limits * We'll continue Levothyroxine 0.075 mg daily by mouth SKI No current issues Diet Clear liquid DVT/Prophylaxis Lovenox 40 mg daily subcutaneous Code Status Full code Problem List: 1. C. difficile diarrhea Pain Ratin Tomorrow's Labs & Rationales: cbc and bep Plan DVT/Prophylaxis: mechanical, pharmacological
[2016-05-02 08:00] VITALS: BP 120/64
--- NOTE | 2016-05-02 08:21 | PN- CRCU ---
Subjective HPI/Critical Care Issues: The patient is awake and appears comfortable. She has had several episodes of diarrhea over the past 24 hours. She remains on IVFs for rehydration. Her Tmax is 100.6 over the past 24 hours. Her vital signs remained stable. She remains on room air. Her white blood cell count has increased to 21,000. Objective Current Medications: Current Medications Sig/Christina Start time Last Medication Dose Route Stop Time Status Admin Acetaminophen 650 MG Q6P PRN 04/30 1445 AC 04/30 PO 1559 Ceftriaxone Sodium 1,000 MG DAILY 04/30 1556 DC 05/01 IV 1008 Enoxaparin Sodium 40 MG DAILY 05/01 1000 AC 05/01 SC 1008 Fluoxetine HCl 20 MG DAILY 05/01 1000 AC 05/01 PO 1659 Levothyroxine Sodium 0.075 MG DAILY AC 05/01 0700 AC 05/02 PO 0610 Magnesium Sulfate 1 GM ONCE ONE 05/01 1330 DC 05/01 Dextrose/Water 100 ML IV 05/01 1729 1742 Metoprolol Succinate 50 MG DAILY 05/01 1000 AC 05/01 PO 1659 Metronidazole 500 MG IQ8 04/30 1600 DC 05/01 N/A 1 UNIT IV 0900 Morphine Sulfate 2 MG Q4P PRN 04/30 1445 AC IV Oxycodone/ 1 TAB Q6P PRN 04/30 1445 AC Acetaminophen PO Potassium Chloride 40 MEQ Q8H 05/01 2345 AC 05/01 Dextrose/Sodium 1,000 ML IV 2342 Chloride Potassium Chloride 40 MEQ Q13H 05/01 1030 DC 05/01 Dextrose/Sodium 1,000 ML IV 05/01 2329 1233 Chloride Potassium Chloride 10 MEQ Q1H 05/01 1015 DC 05/01 IV 05/01 1216 1459 Potassium Chloride 40 MEQ ONCE ONE 05/01 0830 DC PO 05/01 0831 Potassium Chloride 20 MEQ Q13H 05/01 0830 DC 05/01 Dextrose/Sodium 1,000 ML IV 05/01 2129 1008 Chloride Sodium Phosphate 15 mMol ONE ONE 05/02 0745 AC Sodium Chloride 250 ML IV 05/02 1148 Vancomycin HCl 125 MG Q6 05/01 1800 AC 05/02 PO 0532 Vital Signs & I&O Last 24 Hrs of Vitals and I&O: Vital Signs Date Time Temp Pulse Resp B/P Pulse O2 O2 Flow FiO2 Ox Delivery Rate 05/02 0400 96 Room Air 05/02 0000 97 Room Air 05/02 0000 99.0 93 24 130/70 97 Room Air 05/01 1659 110 124/62 05/01 1600 95 Room Air Room Air 05/01 1600 100.6 106 26 118/78 95 Room Air Room Air 05/01 1200 98 Nasal 2.0L Cannula 05/01 0854 97 Nasal 2.0L Cannula 05/01 0800 98.7 98 26 110/82 96 Room Air Room Air 05/01 0800 96 Room Air Room Air Intake & Output 05/02 0800 05/02 0000 05/01 1600 Intake Total 700 900 872 Output Total 2 200 325 Balance 698 700 547 Intake, IV 600 800 772 Intake, Oral 100 100 100 Number 1 2 Bowel Movements Output, 25 Emesis Output, Stool 2 Output, Urine 200 300 Exam General Appearance: no apparent distress, awake, comfortable Head: atraumatic, normal appearance Neck: supple Respiratory: normal breath sounds, lungs clear Cardiovascular: regular rate/rhythm Abdomen: soft, mild nonspecific, periumbilical tenderness, no rebound or guarding Extremities: no edema Skin: intact, normal color, warm/dry Results Last 24 Hrs of Lab Results: Laboratory Tests 05/02/16 0355: Anion Gap 8, Estimated GFR 60, Glucose 97, Calcium 7.2 L, Phosphorus 1.7 L, Magnesium 1.9, Total Bilirubin 0.3, AST 24, ALT 33, Albumin 2.2 L, CBC w Diff MAN DIFF ORDERED, RBC 3.15 L, MCV 88.9, MCH 29.6, RDW 14.3, MPV 8.0, Gran % 89.2 H, Lymphocytes % 5.6 L, Monocytes % 5.1, Eosinophils % 0.1, Basophils % 0 L, Absolute Granulocytes 19.8 H, Segmented Neutrophils 79 H, Band Neutrophils 6 H, Absolute Lymphocytes 1.2, Lymphocytes 9 L, Monocytes 5, Absolute Monocytes 1.1 H, Absolute Eosinophils 0, Absolute Basophils 0, Metamyelocytes 1 , Platelet Estimate ADEQUATE, Polychromasia 1+, Poikilocytosis 1+, Ovalocytes 1+ , PUBS MCHC 33.3, Fld Total RBCs Counted 100 05/01/16 0945: Lactic Acid 1.7 Impression/Plan Impression/Plan Impression/Plan: 1. C. difficile colitis with ongoing diarrhea. The patient remains on PO vancomycin 125 mg every 6 hours. Metabolic acidosis due to diarrhea. 2. History of hypertension, controlled on Toprol. 3. Anemia without evidence of bleeding, likely dilutional. 4. Electrolyte abnormalities - low phosphorus. 5. Hypothyroidism - on levothyroxine. 6. History of Alzheimer's confusion at baseline. Recommendations: * Continue vancomycin 125 mg every 6 hours. Follow-up ID recommendations. * Change IVFs to NS at 50 ml per hour. * Continue Toprol XL for BP control. * Discontinue morphine. * Continue Tylenol and Percocet for pain as needed. * Continue clear liquid diet. * Continue fluoxetine and levothyroxine. * Lovenox for DVT prophylaxis. * Downgrade to [facility] [employer].
--- NOTE | 2016-05-02 10:47 | PN- Infect Dx ---
Subjective Subjective: MAXIMUM TEMPERATURE 100.6. She denies any complaints at this time. She had several loose, guaiac positive stools reported yesterday. Objective Last 24 Hrs of Vital Signs/I&O Vital Signs Date Time Temp Pulse Resp B/P Pulse O2 O2 Flow FiO2 Ox Delivery Rate 05/02 0958 98.7 88 20 119/66 05/02 0400 96 Room Air 05/02 0000 97 Room Air 05/02 0000 99.0 93 24 130/70 97 Room Air 05/01 1659 110 124/62 05/01 1600 95 Room Air Room Air 05/01 1600 100.6 106 26 118/78 95 Room Air Room Air 05/01 1200 98 Nasal 2.0L Cannula Intake & Output 05/02 1600 05/02 0800 05/02 0000 Intake Total 700 900 Output Total 2 200 Balance 698 700 Intake, IV 600 800 Intake, Oral 100 100 Number 1 Bowel Movements Output, Stool 2 Output, Urine 200 Physical Exam Other Physical Findings: She appears comfortable in no acute distress Lungs are clear Heart regular rhythm with no murmur Abdomen is soft, tender on palpation diffusely, with no guarding or rebound, positive bowel sounds Extremities no cyanosis, clubbing or edema Results Last 24 Hours of Lab Results: Laboratory Tests 05/02 0355 Chemistry Sodium (137 - 145 mmol/L) 132 L Potassium (3.5 - 5.1 mmol/L) 4.0 Chloride (98 - 107 mmol/L) 107 Carbon Dioxide (22 - 30 mmol/L) 18 L Anion Gap (5 - 16) 8 BUN (7 - 17 mg/dL) 9 Creatinine (0.5 - 1.0 mg/dL) 0.9 Estimated GFR (>60 ml/min) 60 Glucose (65 - 99 mg/dL) 97 Calcium (8.4 - 10.2 mg/dL) 7.2 L Phosphorus (2.5 - 4.5 mg/dL) 1.7 L Magnesium (1.6 - 2.3 mg/dL) 1.9 Total Bilirubin (0.2 - 1.3 mg/dL) 0.3 AST (14 - 36 U/L) 24 ALT (9 - 52 U/L) 33 Albumin (3.5 - 5.0 g/dL) 2.2 L Hematology CBC w Diff MAN DIFF ORDERED WBC (4.8 - 10.8 /CUMM) 22.1 H RBC (4.20 - 5.40 /CUMM) 3.15 L Hgb (12.0 - 16.0 G/DL) 9.3 L Hct (37 - 47 %) 28.0 L MCV (81.0 - 99.0 FL) 88.9 MCH (27.0 - 31.0 PG) 29.6 RDW (11.5 - 14.5 %) 14.3 Plt Count (130 - 400 /CUMM) 206 MPV (7.4 - 10.4 FL) 8.0 Gran % (42.2 - 75.2 %) 89.2 H Lymphocytes % (20.5 - 51.1 %) 5.6 L Monocytes % (1.7 - 9.3 %) 5.1 Eosinophils % (0 - 5 %) 0.1 Basophils % (0.0 - 2.0 %) 0 L Absolute Granulocytes (1.4 - 6.5 /CUMM) 19.8 H Segmented Neutrophils (42.2 - 75.2 %) 79 H Band Neutrophils (0.0 - 5.0 %) 6 H Absolute Lymphocytes (1.2 - 3.4 /CUMM) 1.2 Lymphocytes (20.5 - 51.1 %) 9 L Monocytes (1.7 - 9.3 %) 5 Absolute Monocytes (0.10 - 0.60 /CUMM) 1.1 H Absolute Eosinophils (0.0 - 0.7 /CUMM) 0 Absolute Basophils (0.0 - 0.2 /CUMM) 0 Metamyelocytes (0.0 - 1.0 %) 1 Platelet Estimate (ADEQUATE) ADEQUATE Polychromasia 1+ Poikilocytosis 1+ Ovalocytes 1+ PUBS MCHC (33.0 - 37.0 G/DL) 33.3 Other Body Source Fld Total RBCs Counted (%) 100 Last 24 Hours of Ovidio Results: Blood cultures April 30 negative Blood cultures May 01 negative Urine culture April 30 negative Assessment/Plan Impression: Improving with temperatures lower grade and with decreased bandemia, though white blood cell count has increased, on po Vancomycin Day 1 of treatment for C. difficile colitis following a course of Ciprofloxacin during a recent hospitalization at [facility] for a urinary tract infection and what appears to be an empiric trial of Flagyl subsequent to that for diarrhea. She was last straight cathed for 150 mL last evening and has apparently been incontinent since. Suggestion: 1. Follow straight catheterization protocol 2. Continue po Vancomycin
[2016-05-02 16:00] VITALS: BP 124/64
[2016-05-03] VITALS: BP 140/72
[2016-05-03 06:17] LABS: ABSOLUTE BASOPHIL COUNT 0.1 /CUMM (0.0-0.2); ABSOLUTE EOSINOPHIL COUNT 0.2 /CUMM (0.0-0.7); ABSOLUTE LYMPH COUNT 1.7 /CUMM (1.2-3.4); ABSOLUTE MONOCYTE COUNT 0.8 /CUMM (0.10-0.60); BASOPHIL % 0.6 % (0.0-2.0); EOSINOPHIL % 1.5 % (0-5); GRANULOCYTE % 78.2 % (42.2-75.2); HEMATOCRIT 28.9 % (37-47); MEAN CORPUSCULAR HGB 29.3 PG (27.0-31.0); MEAN CORPUSCULAR HGB CONC 33.2 G/DL (33.0-37.0); MEAN CORPUSCULAR VOLUME 88.3 FL (81.0-99.0); MEAN PLATELET VOLUME 7.9 FL (7.4-10.4); PLATELET COUNT 220 /CUMM (130-400); RBC DISTRIBUTION WIDTH 14.8 % (11.5-14.5); RED BLOOD CELL CT 3.27 /CUMM (4.20-5.40); WHITE BLOOD CELL COUNT 12.8 /CUMM (4.8-10.8)
--- NOTE | 2016-05-03 07:51 | PN- Housestaff ---
Subjective Follow-up For: Weakness and diarrhea Subjective: Patient was seen and examined. She looks relaxed and comfortable. She denies any current complaint. Patient still have diarrhea however she denies fever, dominant pain, nausea or vomiting. Review of Systems Constitutional: Denies: chills, diaphoresis, fever, weakness. Cardiovascular: Denies: chest pain, palpitations, peripheral edema, syncope. Respiratory: Denies: cough, short of breath. Gastrointestinal: Reports: diarrhea. Denies: abdominal pain, constipation, distention, nausea, vomiting. Genitourinary: Denies: dysuria. Skin: Denies: rash. Objective Last 24 Hrs of Vital Signs/I&O Vital Signs Date Time Temp Pulse Resp B/P Pulse O2 O2 Flow FiO2 Ox Delivery Rate 05/03 0944 140/78 05/03 08 97.5 87 18 150/88 96 Room Air 05/03 0000 97 Room Air 05/03 0000 97.7 86 16 140/72 97 Room Air 05/02 1600 97 Room Air Room Air 05/02 1600 97.5 74 20 124/64 97 Room Air Room Air Intake & Output 05/03 1600 05/03 0800 05/03 0000 Intake Total 120 50 Output Total 350 300 Balance -230 -250 Intake, IV 0 Intake, Oral 120 50 Number 3 2 Bowel Movements Output, Urine 350 300 Patient 72.575 kg Weight Physical Exam General Appearance: Alert, Oriented X3, Cooperative, No Acute Distress Skin: No Rashes HEENT: Atraumatic, PERRLA, EOMI, Mucous Membr. moist/pink Neck: No JVD Cardiovascular: Regular Rate, Normal S1, Normal S2, No Murmurs Lungs: Clear to Auscultation, Normal Air Movement Abdomen: Soft, mild left lower quadrant tenderness with deep palpation Neurological: Normal Speech, mildly confused because of dementia Extremities: No Clubbing, No Cyanosis, No Edema Current Medications: Current Medications Sig/Christina Start time Last Medication Dose Route Stop Time Status Admin Acetaminophen 650 MG Q6P PRN 04/30 1445 AC 04/30 PO 1559 Enoxaparin Sodium 40 MG DAILY 05/01 1000 AC 05/03 SC 0943 Fluoxetine HCl 20 MG DAILY 05/01 1000 AC 05/03 PO 0943 Levothyroxine Sodium 0.075 MG DAILY AC 05/01 0700 AC 05/03 PO 0528 Metoprolol Succinate 50 MG DAILY 05/01 1000 AC 05/03 PO 0944 Oxycodone/ 1 TAB Q6P PRN 04/30 1445 AC Acetaminophen PO Potassium Chloride 40 MEQ ONCE ONE 05/03 0800 DC 05/03 PO 05/03 0801 0943 Vancomycin HCl 125 MG Q6 05/01 1800 AC 05/03 PO 0525 Last 24 Hrs of Lab/Ovidio Results Last 24 Hrs of Labs/Mics: Laboratory Tests 05/03/16 0510: Anion Gap 8, Estimated GFR > 60, BUN/Creatinine Ratio 12.5, Phosphorus 2.5, CBC w Diff MAN DIFF ORDERED, RBC 3.27 L, MCV 88.3, MCH 29.3, RDW 14.8 H, MPV 7.9, Gran % 78.2 H, Lymphocytes % 13.4 L, Monocytes % 6.3, Eosinophils % 1.5, Basophils % 0.6, Absolute Granulocytes 10.0 H, Segmented Neutrophils 65, Band Neutrophils 2, Absolute Lymphocytes 1.7, Lymphocytes 19 L, Monocytes 12 H, Absolute Monocytes 0.8 H, Eosinophils 1, Absolute Eosinophils 0.2, Basophils 1, Absolute Basophils 0.1, Platelet Estimate ADEQUATE, Polychromasia 1+, Poikilocytosis 1+, Ovalocytes 1+, PUBS MCHC 33.2, Fld Total RBCs Counted 100 Assessment/Plan Assessment: #Watery nonbloody diarrhea with positive C. difficile. Patient was found to be C. difficile positive. She felt the treatment with Flagyl as an outpatient and even post admission as inpatient * We'll continue vancomycin 125 mg po every 6 hours * ID is on board we will follow his recommendation * We will advance her diet to regular * Today we will start ambulate the patient today and if needed we will ask for PT eval. #Hypertension: Patient was transferred to the ICU because of high blood pressure and fast heartrate (208/84mmHg with HR of 138), however during ICU stay her vitals were WNL. * We'll continue metoprolol XL 50 mg daily #hypothyroidism TSH and T4 was within normal limits * We'll continue Levothyroxine 0.075 mg daily by mouth #Depression * We will continue fluoxetine 20 mg Diet Regular diet DVT/Prophylaxis Lovenox 40 mg daily subcutaneous Code Status Full code Problem List: 1. C. difficile diarrhea Pain Ratin Pain Location: na Pain Goal: Remain pain free Pain Plan: See A&P Giorgiorrow's Labs & Rationales: cbc and bep
[2016-05-03 08:00] VITALS: BP 150/88
--- NOTE | 2016-05-03 09:24 | PN- Pulmonary ---
Subjective HPI/Critical Care Issues: The patient remains confused. Her diarrhea has improved overall. She remains afebrile without complaints. Objective Current Medications: Current Medications Sig/Christina Start time Last Medication Dose Route Stop Time Status Admin Acetaminophen 650 MG Q6P PRN 04/30 1445 AC 04/30 PO 1559 Enoxaparin Sodium 40 MG DAILY 05/01 1000 AC 05/02 SC 0957 Fluoxetine HCl 20 MG DAILY 05/01 1000 AC 05/02 PO 0958 Levothyroxine Sodium 0.075 MG DAILY AC 05/01 0700 AC 05/03 PO 0528 Metoprolol Succinate 50 MG DAILY 05/01 1000 AC 05/02 PO 0958 Morphine Sulfate 2 MG Q4P PRN 04/30 1445 DC IV Oxycodone/ 1 TAB Q6P PRN 04/30 1445 AC Acetaminophen PO Potassium Chloride 40 MEQ ONCE ONE 05/03 0800 DC PO 05/03 0801 Potassium Chloride 40 MEQ Q8H 05/01 2345 DC 05/01 Dextrose/Sodium 1,000 ML IV 2342 Chloride Sodium Phosphate 15 mMol ONE ONE 05/02 0745 DC 05/02 Sodium Chloride 250 ML IV 05/02 1148 0958 Vancomycin HCl 125 MG Q6 05/01 1800 AC 05/03 PO 0525 Vital Signs & I&O Last 24 Hrs of Vitals and I&O: Vital Signs Date Time Temp Pulse Resp B/P Pulse O2 O2 Flow FiO2 Ox Delivery Rate 05/03 0000 97 Room Air 05/03 0000 97.7 86 16 140/72 97 Room Air 05/02 1600 97 Room Air Room Air 05/02 1600 97.5 74 20 124/64 97 Room Air Room Air 05/02 0958 98.7 88 20 119/66 Intake & Output 05/03 1600 05/03 0800 05/03 0000 Intake Total 120 50 Output Total 350 300 Balance -230 -250 Intake, IV 0 Intake, Oral 120 50 Number 3 2 Bowel Movements Output, Urine 350 300 Exam General Appearance: no apparent distress, awake, comfortable Head: atraumatic, normal appearance Neck: supple Respiratory: normal breath sounds, lungs clear Cardiovascular: regular rate/rhythm Abdomen: soft, mild nonspecific, periumbilical tenderness, no rebound or guarding Extremities: no edema Skin: intact, normal color, warm/dry Impression/Plan Impression/Plan Impression/Plan: 1. C. difficile colitis, improving on PO vanco. 2. History of hypertension, controlled on Toprol. 3. Anemia without evidence of bleeding, likely dilutional. 4. Electrolyte abnormalities - low phosphorus. 5. Hypothyroidism - on levothyroxine. 6. History of Alzheimer's confusion at baseline. Recommendations: * Continue vancomycin 125 mg every 6 hours. Follow-up ID recommendations. * Change IVFs to NS at 50 ml per hour. Discontinue IVFs when PO intake adequate. * Continue Toprol XL for BP control. * Continue Tylenol and Percocet for pain as needed. * Diet as tolerated. * Continue fluoxetine and levothyroxine. * Lovenox for DVT prophylaxis. * GEN med.
--- NOTE | 2016-05-03 10:59 | PN- Infect Dx ---
Subjective Subjective: Afebrile without complaints. She had 7 stools reported yesterday and 3 overnight, still watery, but she reports no nausea, vomiting or abdominal pain. Objective Last 24 Hrs of Vital Signs/I&O Vital Signs Date Time Temp Pulse Resp B/P Pulse O2 O2 Flow FiO2 Ox Delivery Rate 05/03 0944 140/78 05/03 0000 97 Room Air 05/03 0000 97.7 86 16 140/72 97 Room Air 05/02 1600 97 Room Air Room Air 05/02 1600 97.5 74 20 124/64 97 Room Air Room Air Intake & Output 05/03 1600 05/03 0800 05/03 0000 Intake Total 120 50 Output Total 350 300 Balance -230 -250 Intake, IV 0 Intake, Oral 120 50 Number 3 2 Bowel Movements Output, Urine 350 300 Patient 160 lb Weight Physical Exam Other Physical Findings: She appears comfortable in no acute distress Lungs are clear Heart regular rhythm with no murmur Abdomen is soft, nontender with positive bowel sounds Extremities no cyanosis, clubbing or edema Results Last 24 Hours of Lab Results: Laboratory Tests 05/03 0510 Chemistry Sodium (137 - 145 mmol/L) 137 Potassium (3.5 - 5.1 mmol/L) 3.7 Chloride (98 - 107 mmol/L) 108 H Carbon Dioxide (22 - 30 mmol/L) 21 L Anion Gap (5 - 16) 8 BUN (7 - 17 mg/dL) 10 Creatinine (0.5 - 1.0 mg/dL) 0.8 Estimated GFR (>60 ml/min) > 60 BUN/Creatinine Ratio (7 - 25 %) 12.5 Phosphorus (2.5 - 4.5 mg/dL) 2.5 Hematology CBC w Diff MAN DIFF ORDERED WBC (4.8 - 10.8 /CUMM) 12.8 H RBC (4.20 - 5.40 /CUMM) 3.27 L Hgb (12.0 - 16.0 G/DL) 9.6 L Hct (37 - 47 %) 28.9 L MCV (81.0 - 99.0 FL) 88.3 MCH (27.0 - 31.0 PG) 29.3 RDW (11.5 - 14.5 %) 14.8 H Plt Count (130 - 400 /CUMM) 220 MPV (7.4 - 10.4 FL) 7.9 Gran % (42.2 - 75.2 %) 78.2 H Lymphocytes % (20.5 - 51.1 %) 13.4 L Monocytes % (1.7 - 9.3 %) 6.3 Eosinophils % (0 - 5 %) 1.5 Basophils % (0.0 - 2.0 %) 0.6 Absolute Granulocytes (1.4 - 6.5 /CUMM) 10.0 H Segmented Neutrophils (42.2 - 75.2 %) 65 Band Neutrophils (0.0 - 5.0 %) 2 Absolute Lymphocytes (1.2 - 3.4 /CUMM) 1.7 Lymphocytes (20.5 - 51.1 %) 19 L Monocytes (1.7 - 9.3 %) 12 H Absolute Monocytes (0.10 - 0.60 /CUMM) 0.8 H Eosinophils (0 - 5.0 %) 1 Absolute Eosinophils (0.0 - 0.7 /CUMM) 0.2 Basophils (0.0 - 2.0 %) 1 Absolute Basophils (0.0 - 0.2 /CUMM) 0.1 Platelet Estimate (ADEQUATE) ADEQUATE Polychromasia 1+ Poikilocytosis 1+ Ovalocytes 1+ PUBS MCHC (33.0 - 37.0 G/DL) 33.2 Other Body Source Fld Total RBCs Counted (%) 100 Last 24 Hours of Ovidio Results: Blood cultures April 30 remain negative Blood cultures May 01 remain negative Assessment/Plan Impression: Improving with temperatures normal and white blood cell count decreasing on po Vancomycin Day 2 of treatment for C. difficile colitis, with persistent diarrhea but with clinical status overall improved. Her 2 most recent straight catheterizations have yielded 275 mL and 300 mL respectively and she is incontinent in between. Suggestion: 1. Out of bed/physical therapy 2. Continue po Vancomycin
[2016-05-03 16:00] VITALS: BP 142/86
--- NOTE | 2016-05-03 17:23 | NUR ---
1609-4815: PT ALERT, CONFUSED. HX OF ALZHEIMERS. ON RA. LUNGS CLEAR. VSS. AFEBRILE, DENIES CHEST PAIN OR SOB. ABDOMEN D/S + BS, PT HAVING MULTIPLE LOOSE GREEN STOOLS. ON C DIFF PRECAUTIONS. PT NOT VOIDING ON OWN, ON STRAIGHT CATH PROTOCOL. NO BLADDER SCANNER AVAILABLE. PT CATHED AT 0630 AND 1330, AT 1330 ONLY 200ML OBTAINED. WILL CATH LATER TO GIVE PT CHANCE TO VOID ON HER OWN. BOTTOM RED FROM DIARRHEA, A&D OINTMENT ORDERED. PT HAS GENERALIZED EDEMA +1. PT OOB TO [facility]EL CHAIR WITH ROLLING WALKER AND ASSIST OF 2, UNSTEADY GAIT, PT CONSULT PLACED BY HOUSE STAFF. PT HAS POOR PO INTAKE, ENCOURAGED PO INTAKE. DAUGHTER AT BEDSIDE, ENCOURAGING PT TO EAT. PT TOLERATING PO VANCO. RECEIVED 40 MEQ PO POTASSIUM FOR A K+ 3.7. WILL MONITOR.
[2016-05-04] VITALS: BP 134/74
[2016-05-04 05:11] LABS: ABSOLUTE BASOPHIL COUNT 0 /CUMM (0.0-0.2); ABSOLUTE EOSINOPHIL COUNT 0.2 /CUMM (0.0-0.7); ABSOLUTE GRANULOCYTE CT 4.7 /CUMM (1.4-6.5); ABSOLUTE LYMPH COUNT 1.6 /CUMM (1.2-3.4); ABSOLUTE MONOCYTE COUNT 1.1 /CUMM (0.10-0.60); BASOPHIL % 0.2 % (0.0-2.0); EOSINOPHIL % 2.1 % (0-5); GRANULOCYTE % 61.8 % (42.2-75.2); HEMATOCRIT 30.4 % (37-47); MEAN CORPUSCULAR HGB 28.9 PG (27.0-31.0); MEAN CORPUSCULAR HGB CONC 32.9 G/DL (33.0-37.0); MEAN PLATELET VOLUME 6.9 FL (7.4-10.4); PLATELET COUNT 244 /CUMM (130-400); RBC DISTRIBUTION WIDTH 14.4 % (11.5-14.5); RED BLOOD CELL CT 3.46 /CUMM (4.20-5.40); WHITE BLOOD CELL COUNT 7.6 /CUMM (4.8-10.8)
--- NOTE | 2016-05-04 07:29 | PN- Housestaff ---
Subjective Follow-up For: Weakness and diarrhea Subjective: Patient was seen and examined. She looks relaxed and comfortable. She denies any current complaint. Patient still have diarrhea however she denies fever, dominant pain, nausea or vomiting. she Had 3 watery nonbloody-bowel movementsduring the last 8 hours shift. Review of Systems Constitutional: Denies: chills, fever, weakness. Cardiovascular: Denies: chest pain, palpitations, peripheral edema, syncope. Respiratory: Denies: cough, short of breath, wheezing. Gastrointestinal: Reports: diarrhea. Denies: abdominal pain, constipation, nausea, vomiting. Genitourinary: Denies: dysuria. Skin: Denies: jaundice, rash. Objective Last 24 Hrs of Vital Signs/I&O Vital Signs Date Time Temp Pulse Resp B/P Pulse O2 O2 Flow FiO2 Ox Delivery Rate 05/04 0000 98.3 77 20 134/74 98 Room Air 05/03 1600 98.4 79 18 142/86 98 Room Air 05/03 0944 140/78 Intake & Output 05/04 1600 05/04 0800 05/04 0000 Intake Total 320 Output Total 601 Balance -281 Intake, Oral 320 Number 2 Bowel Movements Output, Urine 601 Physical Exam General Appearance: Alert, Oriented X3, Cooperative, No Acute Distress Skin: No Rashes HEENT: Atraumatic, PERRLA, EOMI, Mucous Membr. moist/pink Cardiovascular: Regular Rate, Normal S1, Normal S2, No Murmurs Lungs: Clear to Auscultation, Normal Air Movement Abdomen: Soft, very mild tenderness on the right lower quadrant. Neurological: Normal Speech, dementia Extremities: No Clubbing, No Cyanosis, No Edema Current Medications: Current Medications Sig/Christina Start time Last Medication Dose Route Stop Time Status Admin Acetaminophen 650 MG Q6P PRN 04/30 1445 AC 04/30 PO 1559 Enoxaparin Sodium 40 MG DAILY 05/01 1000 AC 05/03 SC 0943 Fluoxetine HCl 20 MG DAILY 05/01 1000 AC 05/03 PO 0943 Levothyroxine Sodium 0.075 MG DAILY AC 05/01 0700 AC 05/04 PO 0639 Metoprolol Succinate 50 MG DAILY 05/01 1000 AC 05/03 PO 0944 Oxycodone/ 1 TAB Q6P PRN 04/30 1445 AC Acetaminophen PO Vancomycin HCl 125 MG Q6 05/01 1800 AC 05/04 PO 0639 Vitamin A/Vitamin D 1 LARA BID 05/03 2200 AC 05/03 [facility] 2252 Last 24 Hrs of Lab/Ovidio Results Last 24 Hrs of Labs/Mics: Laboratory Tests 05/04/16 0453: CBC w Diff NO MAN DIFF REQ, RBC 3.46 L, MCV 88.0, MCH 28.9, RDW 14.4, MPV 6.9 L, Gran % 61.8, Lymphocytes % 20.9, Monocytes % 15.0 H, Eosinophils % 2.1, Basophils % 0.2, Absolute Granulocytes 4.7, Absolute Lymphocytes 1.6, Absolute Monocytes 1.1 H, Absolute Eosinophils 0.2, Absolute Basophils 0, PUBS MCHC 32.9 L 05/03/16 1000: Sodium Cancelled, Potassium Cancelled, Chloride Cancelled, Carbon Dioxide Cancelled, Anion Gap Cancelled, BUN Cancelled, Creatinine Cancelled, Glucose Cancelled, Calcium Cancelled, Phosphorus Cancelled, Magnesium Cancelled, Total Bilirubin Cancelled, AST Cancelled, ALT Cancelled, Albumin Cancelled Assessment/Plan Assessment: #Watery non-bloody diarrhea with positive C. difficile. Patient was found to be C. difficile positive. She fail the treatment with Flagyl as an outpatient prior to admission and even post admission as inpatient. At some point during this admission WBCs count was elevated to 22,000. Today WBC is back within normal limits * We'll continue vancomycin 125 mg po every 6 hours * ID is on board we will follow his recommendation * Patient's is tolerating regular diet. * Today we will start ambulate the patient today and if needed we will ask for PT eval. #Hypertension: Patient was transferred to the ICU because of high blood pressure and fast heartrate (208/84mmHg with HR of 138), however during ICU stay her vitals were WNL. * We'll continue metoprolol XL 50 mg daily #hypothyroidism TSH and T4 was within normal limits * We'll continue Levothyroxine 0.075 mg daily by mouth #Depression * We will continue fluoxetine 20 mg Diet Regular diet DVT/Prophylaxis Lovenox 40 mg daily subcutaneous Code Status Full code Problem List: 1. C. difficile diarrhea Pain Ratin Pain Location: na Pain Goal: Remain pain free Pain Plan: see A&P Tomorrow's Labs & Rationales: cbc and BEP
--- NOTE | 2016-05-04 10:20 | PN- Pulmonary ---
Subjective HPI/Critical Care Issues: The patient is awake, comfortable and offers no complaints. She remains confused which is compatible with her baseline. There were no overnight events reported. Her diarrhea has improved overall. Objective Current Medications: Current Medications Sig/Christina Start time Last Medication Dose Route Stop Time Status Admin Acetaminophen 650 MG Q6P PRN 04/30 1445 AC 04/30 PO 1559 Enoxaparin Sodium 40 MG DAILY 05/01 1000 AC 05/03 SC 0943 Fluoxetine HCl 20 MG DAILY 05/01 1000 AC 05/03 PO 0943 Levothyroxine Sodium 0.075 MG DAILY AC 05/01 0700 AC 05/04 PO 0639 Metoprolol Succinate 50 MG DAILY 05/01 1000 AC 05/03 PO 0944 Oxycodone/ 1 TAB Q6P PRN 04/30 1445 AC Acetaminophen PO Vancomycin HCl 125 MG Q6 05/01 1800 AC 05/04 PO 0639 Vitamin A/Vitamin D 1 LARA BID 05/03 2200 AC 05/03 TOP 2252 Vital Signs & I&O Last 24 Hrs of Vitals and I&O: Vital Signs Date Time Temp Pulse Resp B/P Pulse O2 O2 Flow FiO2 Ox Delivery Rate 05/04 0000 98.3 77 20 134/74 98 Room Air 05/03 1600 98.4 79 18 142/86 98 Room Air Intake & Output 05/04 1600 05/04 0800 05/04 0000 Intake Total 320 Output Total 601 Balance -281 Intake, Oral 320 Number 2 Bowel Movements Output, Urine 601 Exam General Appearance: no apparent distress, awake, comfortable Head: atraumatic, normal appearance Neck: supple Respiratory: normal breath sounds, lungs clear Cardiovascular: regular rate/rhythm Abdomen: soft, mild nonspecific, periumbilical tenderness, no rebound or guarding Extremities: no edema Skin: intact, normal color, warm/dry Impression/Plan Impression/Plan Impression/Plan: 1. C. difficile colitis, improving on PO vanco. 2. History of hypertension, controlled on Toprol. 3. Anemia without evidence of bleeding, likely dilutional. 4. Electrolyte abnormalities - low phosphorus. 5. Hypothyroidism - on levothyroxine. 6. History of Alzheimer's confusion at baseline. Recommendations: * Continue vancomycin 125 mg every 6 hours. Follow-up ID recommendations. * Continue gentle hydration. Discontinue IVFs when PO intake adequate. * Continue Toprol XL for BP control. * Continue Tylenol and Percocet for pain as needed. * Diet as tolerated. * Continue fluoxetine and levothyroxine. * Lovenox for DVT prophylaxis. * GEN med.
--- NOTE | 2016-05-04 10:49 | PN- Infect Dx ---
Subjective Subjective: Afebrile. She feels improved and reports no diarrhea, though there were 7 stools documented yesterday and 2 overnight. Objective Last 24 Hrs of Vital Signs/I&O Vital Signs Date Time Temp Pulse Resp B/P Pulse O2 O2 Flow FiO2 Ox Delivery Rate 05/04 0000 98.3 77 20 134/74 98 Room Air 05/03 1600 98.4 79 18 142/86 98 Room Air Intake & Output 05/04 1600 05/04 0800 05/04 0000 Intake Total 320 Output Total 601 Balance -281 Intake, Oral 320 Number 2 Bowel Movements Output, Urine 601 Physical Exam Other Physical Findings: She appears comfortable in no acute distress Lungs are clear Heart regular rhythm with no murmur Abdomen is soft, nontender with positive bowel sounds Extremities no cyanosis, clubbing or edema Results Last 24 Hours of Lab Results: Laboratory Tests 05/04 0453 Hematology CBC w Diff NO MAN DIFF REQ WBC (4.8 - 10.8 /CUMM) 7.6 RBC (4.20 - 5.40 /CUMM) 3.46 L Hgb (12.0 - 16.0 G/DL) 10.0 L Hct (37 - 47 %) 30.4 L MCV (81.0 - 99.0 FL) 88.0 MCH (27.0 - 31.0 PG) 28.9 RDW (11.5 - 14.5 %) 14.4 Plt Count (130 - 400 /CUMM) 244 MPV (7.4 - 10.4 FL) 6.9 L Gran % (42.2 - 75.2 %) 61.8 Lymphocytes % (20.5 - 51.1 %) 20.9 Monocytes % (1.7 - 9.3 %) 15.0 H Eosinophils % (0 - 5 %) 2.1 Basophils % (0.0 - 2.0 %) 0.2 Absolute Granulocytes (1.4 - 6.5 /CUMM) 4.7 Absolute Lymphocytes (1.2 - 3.4 /CUMM) 1.6 Absolute Monocytes (0.10 - 0.60 /CUMM) 1.1 H Absolute Eosinophils (0.0 - 0.7 /CUMM) 0.2 Absolute Basophils (0.0 - 0.2 /CUMM) 0 PUBS MCHC (33.0 - 37.0 G/DL) 32.9 L Last 24 Hours of Ovidio Results: Blood cultures May 01 negative Assessment/Plan Impression: Improving with temperatures and white blood cell count now normal on po Vancomycin Day 3 of treatment for C. difficile colitis, though diarrhea continues to be reported. She was straight cathed for 600 mL this morning and, therefore, will need to remain on the protocol. Suggestion: 1. Out of bed/physical therapy 2. Urology evaluation if urinary retention persists 3. Continue po Vancomycin
--- NOTE | 2016-05-04 14:38 | Transfer of Care Summary ---
Hospital Course Course Hospital Course: 84/F with PMH of HTN, Alzheimer's disease, hypothyroidism who presented with persistent diarrhea and fever. The patient recently discharged from [facility] (04/15/2016) after she was treated with ciprofloxacin for UTI. Patient returned to the hospital soon after complaining of diarrhea and was treated for C. difficile with oral Flagyl for 5 days which was completed on 04/25/2016.(no documented positive C.diff test). On the day of admission patient presented with watery diarrhea for one week, felt febrile, started to complaining of abdominal discomfort, and poor appetite. Problems that was addressed since admission: 1.Watery non-bloody diarrhea with positive C. difficile. Patient was initially admitted to the general medicine floor, after which she was found to have questionable diverticulitis on CT. That time her vitals was within normal limits except her temperature which was 100.3. Stool and blood cultures was sent, C. difficile was sent, patient was nothing by mouth for bowel rest, she was started on Ceftriaxone and Flagy. Soon after her C. difficile result came back positive. Patient immediately switched to vancomycin 125 mg po every 6 hours. During the first 2 days of vancomycin patient WBCs kept going up , the highest level was on the 24th(second day of vancomycin) and it was 22,000. Today her WBCs is back to normal. Patient still now still reports diarrhea. Since the morning patient had 3 episodes of watery nonbloody diarrhea. Currently patient denies nausea, vomiting, fever, chills or any abdominal pain. #####Recommendation for next team to do##### * Keep following CBC and electrolytes daily because patient still has diarrhea * Keep giving vancomycin 125 mg by mouth every 6. * Follow-up ID recommendation. 2.Hypertension: Patient was transferred to the ICU because of high blood pressure and fast heartrate (208/84mmHg with HR of 138), however during ICU stay her vitals were WNL. #####Recommendation for next team to do##### * continue metoprolol XL 50 mg daily 3.Hypothyroidism Patient has a history of hypothyroidism, on admission TSH and T4 were WNL. No current intervention toward her hypothyroidism needed. #####Recommendation for next team to do##### * continue home dose of Levothyroxine 0.075 mg daily by mouth 4.Depression and dementia Patient is very mildly confused at baseline. An accurate review of system cannot be obtained from the patient because of her baseline dementia. Patient is not on any medication for dementia. She is only taking medication for depression. given the patients weakness, she had a tough time ambulating. PT on board for assessment/discharge planning. #####Recommendation for next team to do##### * continue home dose of fluoxetine 20 mg * follow PT recommendation for possible d/c to home vs STR Assessment/Plan: See hospital course Assessment/Plan: See hospital course
--- NOTE | 2016-05-04 15:00 | NUR ---
NURSING NOTE: PT ARRIVED TO FLOOR VIA BED WITH DISTRIBUTION FROM ICU, PT AWAKE, A/OX1, BED ALARM PLACED, NO IV ACCESS. ALPS PLACED. ENTERIC PREC FOR C DIFF +. BOTTOM RED; SIZEWISE ORDERED, SETTLED INTO ROOM, REPORT GIVEN TO NEXT SHIFT RN. DAUGHTER AT BEDSIDE
[2016-05-04 15:55] VITALS: BP 124/79
--- NOTE | 2016-05-04 16:58 | NUR ---
SIZEWISE MATTRESS DELIEVERED AND SET UP IN ROOM
--- NOTE | 2016-05-04 18:15 | NUR ---
PHARMACY CALLED PATIENT'S 1800PM DOSE OF PO VANCOMYCIN HAS NOT ARRIVED ON THE FLOOR YET; PER PHARMACIST SHY HE IS PLACING IT IN THE TUG NOW AND IT WILL BE DEPARTING THE PHARMACY SHORTLY; WILL NOTIFY NEXT SHIFT RN;
[2016-05-05 00:01] VITALS: BP 160/82
[2016-05-05 05:29] LABS: ABSOLUTE BASOPHIL COUNT 0 /CUMM (0.0-0.2); ABSOLUTE EOSINOPHIL COUNT 0.1 /CUMM (0.0-0.7); ABSOLUTE GRANULOCYTE CT 4.3 /CUMM (1.4-6.5); ABSOLUTE LYMPH COUNT 1.6 /CUMM (1.2-3.4); BASOPHIL % 0.4 % (0.0-2.0); EOSINOPHIL % 1.9 % (0-5); GRANULOCYTE % 61.8 % (42.2-75.2); HEMATOCRIT 27.6 % (37-47); MEAN CORPUSCULAR HGB 29.5 PG (27.0-31.0); MEAN CORPUSCULAR HGB CONC 33.9 G/DL (33.0-37.0); MEAN CORPUSCULAR VOLUME 86.8 FL (81.0-99.0); PLATELET COUNT 270 /CUMM (130-400); RBC DISTRIBUTION WIDTH 14.8 % (11.5-14.5); RED BLOOD CELL CT 3.18 /CUMM (4.20-5.40)
--- NOTE | 2016-05-05 06:17 | PN- Housestaff ---
TRA PEREZ,LESIA 05/05/16 0616: Subjective Follow-up For: C diff colitis Subjective: Patient seen and examined at bedside. No new complaints this morning. She had 2 bowel movements since last night and they were "semi-formed" per nursing report. Patient denies any abdmonal pain, n/v/c/d. Review of Systems Constitutional: Reports: see HPI. Objective Last 24 Hrs of Vital Signs/I&O Vital Signs Date Time Temp Pulse Resp B/P Pulse O2 O2 Flow FiO2 Ox Delivery Rate 05/05 1625 98.6 67 21 156/70 97 Room Air 05/05 1119 Room Air Room Air 05/05 1009 84 142/68 05/05 0801 98.0 80 20 121/71 97 Room Air 05/05 0001 98.5 76 20 160/82 97 Room Air Intake & Output 05/05 1600 05/05 0800 05/05 0000 Intake Total 960 480 Output Total 751 100 Balance 209 380 Intake, IV 0 Intake, Oral 960 480 Number 1 1 Bowel Movements Output, Stool 1 Output, Urine 750 100 Physical Exam General Appearance: Alert, Oriented X3, Cooperative, No Acute Distress Other Physical Findings: Skin: No Rashes HEENT: Atraumatic, PERRLA, EOMI, Mucous Membr. moist/pink Cardiovascular: Regular Rate, Normal S1, Normal S2, No Murmurs Lungs: Clear to Auscultation, Normal Air Movement Abdomen: Soft, Normoactive bowel sound, No tenderness. Neurological: Normal Speech, dementia Extremities: No Clubbing, No Cyanosis, No Edema Current Medications: Current Medications Sig/Christina Start time Last Medication Dose Route Stop Time Status Admin Acetaminophen 650 MG Q6P PRN 04/30 1445 AC 04/30 PO 1559 Enoxaparin Sodium 40 MG DAILY 05/01 1000 AC 05/05 SC 1003 Fluoxetine HCl 20 MG DAILY 05/01 1000 AC 05/05 PO 1003 Hydromorphone HCl 1 MG ONCE ONE 05/05 1500 DC IV 05/05 1501 Hydromorphone HCl 2 MG Q4P PRN 05/05 1500 AC PO Lactobacillus 1 CAP DAILY 05/05 1142 AC 05/05 Acidophilus PO 1221 Levothyroxine Sodium 0.075 MG DAILY AC 05/01 0700 AC 05/05 PO 0513 Metoprolol Succinate 50 MG DAILY 05/01 1000 AC 05/05 PO 1009 Oxycodone/ 1 TAB Q6P PRN 04/30 1445 AC Acetaminophen PO Vancomycin HCl 125 MG Q6 05/01 1800 AC 05/05 PO 1206 Vitamin A/Vitamin D 1 LARA BID 05/03 2200 AC 05/05 TOP 1003 Last 24 Hrs of Lab/Ovidio Results Last 24 Hrs of Labs/Mics: Laboratory Tests 05/05/16 0500: Anion Gap 7, Estimated GFR 60, BUN/Creatinine Ratio 8.9, CBC w Diff NO MAN DIFF REQ, RBC 3.18 L, MCV 86.8, MCH 29.5, RDW 14.8 H, MPV 7.0 L, Gran % 61.8, Lymphocytes % 22.3, Monocytes % 13.6 H, Eosinophils % 1.9, Basophils % 0.4, Absolute Granulocytes 4.3, Absolute Lymphocytes 1.6, Absolute Monocytes 1.0 H, Absolute Eosinophils 0.1, Absolute Basophils 0, PUBS MCHC 33.9 Assessment/Plan Assessment: 84 year old female with PMH of HTN, Alzheimer's disease, hypothyroidism who presented with persistent diarrhea and fever 2/2 c. diff colitis. Currently afebrile and HDS with no GI complaints on oral vancomycin. # C. diff colitis Patient was found to be C. difficile positive. She failed the treatment with Flagyl outpatient prior to admission and as well as during this admission. Patient has significantly improved on oral vancomycin started on 05/02. * Continue vancomycin 125 mg PO Q6 - day 4 (needs total of 14 days) * Cont to follow ID recs * Encourage ambulation and adequate hydration # Sepsis 2/2 c. diff colitis - resolved During her initial course of hoptal stay, patient had a fever up to 100.6 with leukocytosis of 22.1 and tachycardia up to 110, consistent with sepsis in the setting of C. diff infection. Her sepsis has resolved with the antibiotics thearpy and supportive measures taken to ensure hemodynamic stability. She remained afebrile on PO Vancomycin during the rest of her hospital stay. # Oliguria * Straight cath protocol until her PVR < 200 mL 2 * Urology consult if patient has urinary retention #Hypertension: Patient was transferred to the ICU because of hypertension and tachycardia (BP 208/84 and HR of 138). These have normalized while in ICU and continue to be unrarmakble. * Continue home med metoprolol XL 50 mg daily #hypothyroidism TSH and T4 within normal limits this admission. * Continue home med levothyroxine 0.075 mg daily by mouth #Depression * Continue home med fluoxetine 20 mg - Regular diet - Mild pain pathway - DVT/Prophylaxis - Lovenox - Full code Problem List: 1. C. difficile diarrhea Pain Ratin Pain Location: 0 Pain Goal: Remain pain free Pain Plan: Mild pathway Tomorrow's Labs & Rationales: None NIC LUO MD 05/05/16 1245: Attending MD Review Statement Attending Statement Attending MD Statement: examined this patient, discuss w/resident/PA/BLOWER BLAST FURNACE, agreed w/resident/PA/BLOWER BLAST FURNACE, discussed with family, reviewed EMR data (avail), discussed with nursing, discussed with case mgmt, amended to note Attending Assessment/Plan: Patient seen and examined. EKG are reviewed. Sitting comfortably not in any distress. Very jovial. Poor historian due to her dementia. Daughter was present at the bedside. Patient had 4 loose bowel movements yesterday. She has had about 3 bowel movements today. There appear to be less watery. Patient denies nausea vomiting. Denies abdominal pain. She is nontender on examination. She is afebrile hemodynamically stable with no leukocytosis. Her renal function is within normal limits. Patient was retaining urine yesterday however nursing staff reports that she reported 1000 mL spontaneously this morning. Recommendations: -Continue Flagyl to complete 14 days of therapy. -Would recommend bladder scanning versus recatheterization to ensure that patient is not retaining urine. -Mobilize patient. -If diarrhea continues to improve and patient remains hemodynamically stable she may be discharged home tomorrow with outpatient follow-up with her primary care provider.
[2016-05-05 08:01] VITALS: BP 121/71
[2016-05-05] MEDS ORDERED: VANCOMYCIN HCL5 G1 PO ×2 (08:21→10:04)
--- NOTE | 2016-05-05 08:24 | Patient Discharge Instructions ---
Discharge Instructions General Discharge Information You were seen/treated for: C. diff colitis Watch for these problems: Return to ED if you have any worsening/persistent fever, chills, abdominal pain, nausea, vomiting, diarrhea, constipation. Special Instructions: -Please follow-up with your primary care provider within 7 days after discharge. -We have made changes to your home medications, please read the instructions carefully. -Please come back to the hospital if your symptoms got worse. Diet Recommended Diet: Heart Healthy Activity Full Activity/No Limits: Yes (as tolerated) Acute Coronary Syndrome Inclusion Criteria At DC or during hospital stay patient has or had the following: ACS DIAGNOSIS No Discharge Core Measures Meds if any: Prescribed or Continued at Discharge Meds if any: NOT Prescribed or Continued at Discharge Congestive Heart Failure Inclusion Criteria At DC or during hospital stay patient has or had the following: CHF DIAGNOSIS No Discharge Core Measures Meds if any: Prescribed or Continued at Discharge Meds if any: NOT Prescribed or Continued at Discharge Cerebrovascular accident Inclusion Criteria At DC or during hospital stay patient has or had the following: CVA/TIA Diagnosis No Discharge Core Measures Meds if any: Prescribed or Continued at Discharge Meds if any: NOT Prescribed or Continued at Discharge Venous thromboembolism Inclusion Criteria VTE Diagnosis No VTE Type NONE VTE Confirmed by (Test) NONE Discharge Core Measures - Per Current guidelines, there needs to be overlap - treatment for the first 5 days of Warfarin therapy. - If discharged on Warfarin prior to 5 days of - overlap therapy, the patient will need to be - assessed for post discharge needs including - *Post discharge parental anticoagulation - *Warfarin and/or parental anticoagulation education - *Follow up date to check INR post discharge At least 5 days overlap therapy as Inpatient No Meds if any: Prescribed or Continued at Discharge Note: Overlap Therapy is Warfarin and Anticoagulant Meds if any: NOT Prescribed or Continued at Discharge
--- NOTE | 2016-05-05 11:39 | Discharge Summary ---
Visit Information Visit Dates Admission Date: 04/30/16 Discharge Date: 05/06/16 Hospital Course Course Attending Physician: SHERI SMITH MD Primary Care Physician: MELCHOR PEREZ,[facility] Course: 84 year old female with PMH of HTN, Alzheimer's disease, hypothyroidism who presented with persistent diarrhea and fever. The patient recently discharged from [facility] (04/15/2016) after she was treated with ciprofloxacin for UTI. Patient returned to the hospital soon after complaining of diarrhea and was treated for C. difficile with oral Flagyl for 5 days which was completed on 04/25/2016.(no documented positive C.diff test). On the day of admission patient presented with watery diarrhea for one week, felt febrile, started to complaining of abdominal discomfort, and poor appetite. Patient was treated for the following medical conditions: # Watery non-bloody diarrhea with positive C. difficile. Patient was initially admitted to the general medicine floor, after which she was found to have questionable diverticulitis on CT. patient was transfer to ICU due to high blood pressure. That time her vitals was within normal limits except her temperature which was 100.3. Stool and blood cultures was sent, C. difficile was sent, patient was nothing by mouth for bowel rest, she was started on Ceftriaxone and Flagy. Soon after her C. difficile result came back positive. Patient immediately switched to vancomycin 125 mg po every 6 hours per ID consultation. During the first 2 days of vancomycin patient WBCs kept going up, the highest level was on the 24th(second day of vancomycin) and it was 22,000. Subsequently patient improved on WBC trended down to begin normal limits. She was transferred to general medicine floor. Vital signs were stable , no fevers. Patient was discharged on oral vancomycin to complete total of 14 days. # Sepsis 2/2 c. diff colitis - resolved During her initial course of hopsital stay, patient had a fever up to 100.6 with leukocytosis of 22.1 and tachycardia up to 110, consistent with sepsis in the setting of C. diff infection. Her sepsis has resolved with the antibiotics thearpy and supportive measures taken to ensure hemodynamic stability. She remained afebrile on PO Vancomycin during the rest of her hospital stay. # Hypertension: On secondary of hospitalization patient blood pressure was increased to 208/84 with HR of 138 and she was transferred to ICU for closer monitoring. However the blood pressure remained stable without any further intervention and patient was continued on home dosage of metoprolol. # Hypothyroidism Patient has a history of hypothyroidism, on admission TSH and T4 were WNL. We continued her home dosage. Allergies: Coded Allergies: NO KNOWN ALLERGIES (09/02/11) Disposition Summary Disposition Principal Diagnosis: C. difficile colitis Additional Diagnosis: Hypothyroidism Alzheimer's Discharge Disposition: SNF Discharge Instructions General Discharge Information Code Status: Full Code Patient's Diet: Heart healthy Patient's Activity: as tolerated Follow-Up Instructions/Appts: -Please follow-up with your primary care provider within 7 days after discharge. -We have made changes to your home medications, please read the instructions carefully. -Please come back to the hospital if your symptoms got worse. Medications at Discharge Discharge Medications: Continue taking these medications: Fluoxetine HCl (Fluoxetine HCl) 20 MG CAPSULE 1 Capsule ORAL DAILY Qty = 90 Comments: Last Taken: 05/06/16 Time: 0830AM Metoprolol Succinate (Metoprolol Succinate) 50 MG TAB.ER.24H 1 Tablet ORAL DAILY Qty = 90 Comments: Last Taken: 05/06/16 Time: 0830AM Levothyroxine Sodium (Levothyroxine Sodium) 75 MCG TABLET 1 Tablet ORAL DAILY BEFORE BREAKFAST Qty = 90 Comments: Last Taken: 05/06/16 Time: 0600AM Multivitamin (Daily Multiple Vitamin) 1 EACH TABLET 1 Tablet ORAL DAILY Comments: NOT GIVEN IN HOSPITAL Start taking the following new medications: Vancomycin HCl (Vancomycin HCl) 900 MCG/MG (NOT LESS THAN, RESIDENTIAL) POWDER 125 Milligram ORAL EVERY SIX HOURS Days = 10 No Refills Instructions: Stop after last dose on 05/14/16. Comments: Last Taken: 05/06/16 Time: 0600AM Lactobacillus Acidophilus (Acidophilus) 1 EACH CAPSULE 1 Capsule ORAL DAILY Qty = 30 No Refills Comments: Last Taken: 05/06/16 Time: 0830AM Copies To: MELCHOR PEREZ,PARISH; DARON PEREZ,CARLOS EDUARDO Pierce Attending MD Review Statement Documenting Attending: NIC LUO M.D Other Findings: I have reviewed the discharge summary.
--- NOTE | 2016-05-05 12:38 | PN- Infect Dx ---
Subjective Subjective: Afebrile without complaints. She had 4 stools reported yesterday. Objective Last 24 Hrs of Vital Signs/I&O Vital Signs Date Time Temp Pulse Resp B/P Pulse O2 O2 Flow FiO2 Ox Delivery Rate 05/05 1119 Room Air Room Air 05/05 1009 84 142/68 05/05 0801 98.0 80 20 121/71 97 Room Air 05/05 0001 98.5 76 20 160/82 97 Room Air 05/04 1555 97.7 69 20 124/79 96 Intake & Output 05/05 1600 05/05 0800 05/05 0000 Intake Total 480 Output Total 701 100 Balance -701 380 Intake, IV 0 Intake, Oral 480 Number 1 1 Bowel Movements Output, Stool 1 Output, Urine 700 100 Physical Exam Other Physical Findings: She appears comfortable in no acute distress Abdomen is soft, mildly tender on palpation of the right side of her abdomen, with no guarding or rebound, positive bowel sounds Extremities trace edema both lower extremities Results Last 24 Hours of Lab Results: Laboratory Tests 05/05 0500 Chemistry Sodium (137 - 145 mmol/L) 139 Potassium (3.5 - 5.1 mmol/L) 3.6 Chloride (98 - 107 mmol/L) 108 H Carbon Dioxide (22 - 30 mmol/L) 23 Anion Gap (5 - 16) 7 BUN (7 - 17 mg/dL) 8 Creatinine (0.5 - 1.0 mg/dL) 0.9 Estimated GFR (>60 ml/min) 60 BUN/Creatinine Ratio (7 - 25 %) 8.9 Hematology CBC w Diff NO MAN DIFF REQ WBC (4.8 - 10.8 /CUMM) 7.0 RBC (4.20 - 5.40 /CUMM) 3.18 L Hgb (12.0 - 16.0 G/DL) 9.4 L Hct (37 - 47 %) 27.6 L MCV (81.0 - 99.0 FL) 86.8 MCH (27.0 - 31.0 PG) 29.5 RDW (11.5 - 14.5 %) 14.8 H Plt Count (130 - 400 /CUMM) 270 MPV (7.4 - 10.4 FL) 7.0 L Gran % (42.2 - 75.2 %) 61.8 Lymphocytes % (20.5 - 51.1 %) 22.3 Monocytes % (1.7 - 9.3 %) 13.6 H Eosinophils % (0 - 5 %) 1.9 Basophils % (0.0 - 2.0 %) 0.4 Absolute Granulocytes (1.4 - 6.5 /CUMM) 4.3 Absolute Lymphocytes (1.2 - 3.4 /CUMM) 1.6 Absolute Monocytes (0.10 - 0.60 /CUMM) 1.0 H Absolute Eosinophils (0.0 - 0.7 /CUMM) 0.1 Absolute Basophils (0.0 - 0.2 /CUMM) 0 PUBS MCHC (33.0 - 37.0 G/DL) 33.9 Last 24 Hours of Ovidio Results: No recent cultures Assessment/Plan Impression: Continues to improve with decreased diarrhea, with stools now semi-formed, and with temperatures and white blood cell count remaining normal on po Vancomycin Day 4 of treatment for C. difficile colitis. She was straight cathed for 600 mL yesterday morning but has not been catheterized since. Suggestion: 1. Resume straight catheterization protocol until her postvoid residuals are less than 200 mL 2 2. Urology evaluation if urinary retention persists 3. Continue po Vancomycin to complete a 10-14 day course
[2016-05-05 16:25] VITALS: BP 156/70
[2016-05-05 23:58] VITALS: BP 152/72
[2016-05-06 07:32] VITALS: BP 134/68
--- NOTE | 2016-05-06 07:58 | PN- Housestaff ---
RELL APONTE MD 05/06/16 0757: Subjective Follow-up For: C diff colitis Subjective: Patient seen and examined at bedside this AM. She reports she is doing well with minimal loose bowel movements. The nurse reports 2 very small loose bowel movements. Patient also reports she is tolerating a PO diet well. Review of Systems Constitutional: Denies: chills, diaphoresis, fever, malaise. EENTM: Denies: blurred vision, visual changes, hearing changes. Cardiovascular: Denies: chest pain, palpitations. Respiratory: Denies: cough, short of breath. Gastrointestinal: Reports: diarrhea. Denies: abdominal pain, melena, nausea, vomiting. Genitourinary: Denies: dysuria. Musculoskeletal: Denies: back pain. Objective Last 24 Hrs of Vital Signs/I&O Vital Signs Date Time Temp Pulse Resp B/P Pulse O2 O2 Flow FiO2 Ox Delivery Rate 05/06 0732 98.0 80 20 134/68 96 Room Air 05/05 2358 98.1 69 20 152/72 96 05/05 1625 98.6 67 21 156/70 97 Room Air 05/05 1119 Room Air Room Air 05/05 1009 84 142/68 Intake & Output 05/06 1600 05/06 0800 05/06 0000 Intake Total 240 240 Output Total 1150 200 Balance -910 40 Intake, Oral 240 240 Number 3 1 Bowel Movements Output, Urine 1150 200 Physical Exam General Appearance: Alert, Oriented X3, Cooperative, No Acute Distress Other Physical Findings: Skin: No Rashes HEENT: Atraumatic, PERRLA, EOMI, Mucous Membr. moist/pink Cardiovascular: Regular Rate, Normal S1, Normal S2, No Murmurs Lungs: Clear to Auscultation, Normal Air Movement Abdomen: Soft, Normoactive bowel sound, No tenderness. Neurological: Normal Speech, dementia Extremities: No Clubbing, No Cyanosis, No Edema Current Medications: Current Medications Sig/Christina Start time Last Medication Dose Route Stop Time Status Admin Acetaminophen 650 MG Q6P PRN 04/30 1445 AC 04/30 PO 1559 Enoxaparin Sodium 40 MG DAILY 05/01 1000 AC 05/06 SC 0835 Fluoxetine HCl 20 MG DAILY 05/01 1000 AC 05/06 PO 0835 Hydromorphone HCl 1 MG ONCE ONE 05/05 1500 DC IV 05/05 1501 Hydromorphone HCl 2 MG Q4P PRN 05/05 1500 AC PO Lactobacillus 1 CAP DAILY 05/05 1142 AC 05/06 Acidophilus PO 0835 Levothyroxine Sodium 0.075 MG DAILY AC 05/01 0700 AC 05/06 PO 0639 Metoprolol Succinate 50 MG DAILY 05/01 1000 AC 05/06 PO 0835 Oxycodone/ 1 TAB Q6P PRN 04/30 1445 AC Acetaminophen PO Vancomycin HCl 125 MG Q6 05/01 1800 AC 05/06 PO 0639 Vitamin A/Vitamin D 1 LARA BID 05/03 2200 AC 05/06 TOP 0835 Orders Radiology Findings: EXAMINATION: CT ABDOMEN AND PELVIS WITHOUT CONTRAST CLINICAL INFORMATION: Abdominal pain and diarrhea. Suspected diverticulitis. COMPARISON: CT abdomen and pelvis 04/30/2016. TECHNIQUE: Multidetector volumetric imaging was performed from the superior aspect of the liver through the pubic symphysis. Sagittal and coronal reformatted images were obtained on the technologist's workstation. The study is limited by artifact from the patient's arms overlying the abdomen. DLP: 473.70 mGy-cm. FINDINGS: LUNG BASES: The lung bases are clear. There is minor linear atelectasis at the left base. Coronary artery calcification is seen. LIVER, GALLBLADDER, AND BILIARY TREE: The liver is normal in size, shape, and attenuation. No focal hepatic lesion or biliary ductal dilatation is present. The gallbladder is distended with no manifestations of gallbladder wall thickening or pericholecystic fluid. PANCREAS: Unremarkable. SPLEEN: The spleen is unremarkable with a unchanged focal calcification in the lateral margin of the spleen. ADRENAL GLANDS: Unremarkable. KIDNEYS AND URETERS: The kidneys are normal in size, shape, and attenuation. No hydronephrosis, hydroureter, or calculi seen. No perinephric stranding. BLADDER: Unremarkable. GASTROINTESTINAL TRACT: Moderate hiatal hernia is demonstrated without change. No evidence of bowel obstruction. Moderate diverticulosis is seen most notable in the sigmoid colon. There is mild thickening of the sigmoid colon. There is mild soft tissue stranding lateral to the proximal sigmoid colon without other well-defined features of diverticulitis. No evidence of extraluminal air or fluid collections. There is a suggestion of mild thickening of the cecum and ascending colon. ABDOMINAL WALL: No significant hernia is appreciated. LYMPH NODES: Normal. VASCULAR: Moderately extensive vascular calcification is seen with mild ectasia of the abdominal aorta. No interval change. PELVIC VISCERA: Unremarkable. OSSEOUS STRUCTURES: Multilevel degenerative changes are again seen in the lumbar spine. IMPRESSION: 1. Moderate diverticulosis most notable in the sigmoid colon. Mild soft tissue stranding could reflect subtle manifestations of diverticulitis. There are no manifestations of extraluminal fluid collection or extraluminal air. 2. Mild thickening of the sigmoid colon is also associated with mild thickening of the right colon and the findings could also reflect manifestations of a colitis unrelated to diverticular disease. 3. No significant change from prior. The current study is limited by artifact from the patient's arms. Assessment/Plan Assessment: 84 year old female with PMH of HTN, Alzheimer's disease, hypothyroidism who presented with persistent diarrhea and fever 2/2 c. diff colitis. Currently afebrile and HDS with no GI complaints on oral vancomycin. # C. diff colitis Patient was found to be C. difficile positive. She failed the treatment with Flagyl outpatient prior to admission and as well as during this admission. Patient has significantly improved on oral vancomycin started on 05/02. * IMPROVING, PATIENT STABLE FOR DISCHARGE TODAY, added lactobacillus to regimen upon discharge * Continue vancomycin 125 mg PO Q6 - day 4 (needs total of 14 days) * Cont to follow ID recs * Encourage ambulation and adequate hydration # Sepsis 2/2 c. diff colitis - resolved During her initial course of hopsital stay, patient had a fever up to 100.6 with leukocytosis of 22.1 and tachycardia up to 110, consistent with sepsis in the setting of C. diff infection. Her sepsis has resolved with the antibiotics thearpy and supportive measures taken to ensure hemodynamic stability. She remained afebrile on PO Vancomycin during the rest of her hospital stay. # Oliguria * Straight cath protocol until her PVR < 200 mL 2 * Urology consult if patient has urinary retention #Hypertension: Patient was transferred to the ICU because of hypertension and tachycardia (BP 208/84 and HR of 138). These have normalized while in ICU and continue to be unrarmakble. * Continue home med metoprolol XL 50 mg daily #hypothyroidism TSH and T4 within normal limits this admission. * Continue home med levothyroxine 0.075 mg daily by mouth #Depression * Continue home med fluoxetine 20 mg - Regular diet - Mild pain pathway - DVT/Prophylaxis - Lovenox - Full code Problem List: 1. Diverticulitis 2. C. difficile diarrhea Pain Ratin Pain Location: n/a Pain Goal: Remain pain free Pain Plan: Mild pain pathways. Tomorrow's Labs & Rationales: Discharge today. PUJA PEREZNIC 05/06/16 0940: Attending MD Review Statement Attending Statement Attending Statement: examined this patient, discuss w/resident/PA/HIDE SORTER, agreed w/resident/PA/HIDE SORTER, reviewed EMR data (avail), discussed with nursing, discussed with case mgmt, amended to note Attending Assessment/Plan: Patient resting comfortably and very jovial this morning. Denies nausea vomiting. Denies abdominal pain. 2 bowel movements documented yesterday but in the morning. 3 bowel movements documented overnight so far. Nursing staff reports stool as small in quantity. On examination her abdomen nondistended, soft and nontender. She was seen by the physical therapy service and their recommendations is for rehabilitation in the short-term rehabilitation facility versus additional services at home. Daughter discharge would like the patient to be discharged to custodial facility. Patient is medically stable to be discharged today and will complete her course of vancomycin at the nursing facility. We will add lactobacillus to her discharge regimen. Bladder scan has been completed with no evidence of urinary retention noted.
[2016-05-06] MEDS ORDERED: ACIDOPHILUS1 EACH PO (09:59)
[2016-05-06 10:07] VITALS: BP 134/68
== END 2016-05-06 11:01 | DRG 872 ==
LOC: ENRESERVTM → ENRESERVDT → ERH 10:17 → CRI 13:35 → 2NB 13:35 → ERHI 13:35 → ENPENDDIS 13:35 → DELPENDDIS 13:35 → 2NB 13:35 → CRI 16:33 → 2NB 05-04 14:55
PROVIDERS: Internal Medicine Nephrology; Physician Assistant; Student in an Organized Health Care Education/Training Program; ADMIT Internal Medicine
DX: A41.9 Sepsis, unspecified organism (principal); A04.7 Enterocolitis due to Clostridium difficile; G30.9 Alzheimer's disease, unspecified; F02.80 Dementia in other diseases classified elsewhere, unspecified severity, without behavioral disturbance, psychotic disturbance, mood disturbance, and anxiety; E03.9 Hypothyroidism, unspecified; K21.9 Gastro-esophageal reflux disease without esophagitis; I10 Essential (primary) hypertension; R33.9 Retention of urine, unspecified; F32.9 Major depressive disorder, single episode, unspecified
CPT/HCPCS: 2NBP; CCU; 36415; 74176; 81001; 82436; 87040; 87045; 87086; 93005; 93010; 94799; 96374; 96375; 97110-GO; 97116-GO; 97161-GP; 97530-GO; J0131; J0696; J0744; J1650; J7040; J7042; J7060; S5012

== ENCOUNTER 2016-06-19 07:49 | Emergency (ER) | payer OTHER ==
[~2016-06-19] VITALS: Ht 160 cm; Wt 78.9 kg
[~2016-06-19 07:49] MED LIST: ACIDOPHILUS1 EACH PO; DAILY MULTIPLE1 EACH PO; FLUOXETINE HCL20 M2 PO; LEVOTHYROXINE75 MCG PO; METOPROLOL SUCC50 M2 PO; VANCOMYCIN HCL5 G1 PO
--- NOTE | 2016-06-19 08:17 | ED GI/GU/ABDOMINAL COMPLAINT ---
History of Present Illness General Chief Complaint: Nausea, Vomiting, Diarrhea Stated Complaint: DIARRHEA ? CDIFF Source: patient, family, old records Exam Limitations: dementia Vital Signs & Intake/Output Vital Signs & Intake/Output Vital Signs Date Time Temp Pulse Resp B/P Pulse O2 O2 Flow FiO2 Ox Delivery Rate 06/19 1156 97.0 90 20 142/76 98 Room Air 06/19 0852 Room Air Room Air 06/19 0753 97.2 96 18 136/74 96 Room Air Allergies Coded Allergies: NO KNOWN ALLERGIES (09/02/11) Reconcile Medications Fluoxetine HCl 20 MG CAPSULE 1 CAP PO DAILY MENTAL HEALTH (Reported) Lactobacillus Acidophilus (Acidophilus) 1 EACH CAPSULE 1 CAP PO DAILY Supplement Levothyroxine Sodium 75 MCG TABLET 1 TAB PO DAILY AC THYROID (Reported) Metoprolol Succinate 50 MG TAB.ER.24H 1 TAB PO DAILY HEART (Reported) Multivitamin (Daily Multiple Vitamin) 1 EACH TABLET 1 TAB PO DAILY SUPPLEMENT (Reported) Vancomycin HCl (Vancocin HCl) 125 MG CAPSULE 1 TAB PO 4 TIMES/DAY C.DIFF COLITIS Triage Note: 85 Y/O FEMALE C/O ? C.DIFF. FAMILY REPORTS HISTORY OF SAME. STATE MEDICATION WAS FINISHED APPROX 1.5 WEEKS AGO AND PT HAS HAD DECREASED APPETITE, FEVER AND DIARRHEA SINCE SUNDAY. PT BROUGHT STOOL SAMPLE WITH HER. AFEBRILE IN TRIAGE Triage Nurses Notes Reviewed? yes ? n Is pt currently ? No Onset: Gradual Duration: day(s): (3) Timing: recent history Quality/Severity: cramping Location: left lower quadrant, right lower quadrant Radiation: no radiation Activities at Onset: none Prior Abdominal Problems: similar symptoms Past Sexual History: Unobtainable at this time No Modifying Factors: none HPI: Patient is an 85-year-old female history of C. difficile, diverticulitis, hypothyroid, hypertension and Alzheimer's presenting to the emergency department with daughter with chief complaint of decreased by mouth intake, malaise, tactile fevers and lower abdominal cramping going on for the past 3 days. She recently was admitted for C. difficile about a month and half ago, discharged home and started on by mouth vancomycin. She stoppeD the antibiotics about 2 weeks ago and then a week later developed symptoms. She's had "multiple" episodes of watery diarrhea over the past 3 days. Per daughter she is going every hour on the hour. Denies blood in the stool. Fever up to 99.5 per the daughter. Denies any nausea or vomiting. Denies taking anything for pain at home. Daughter is adamant that this is the same symptoms patient had one previously diagnosed with C. difficile. Denies any chest pain palpitations or shortness of breath. No recent upper respiratory symptoms. Denies any urinary frequency urgency or dysuria. Patient is reporting pain over the right flank, describes as superficial and in the skin. Denies any rashes. Unsure if she ever had chickenpox. The daughter lives with the patient. (JENNIFER LAU) Past History Travel History Traveled to [place] past 21 day No Medical History Any Pertinent Medical History? see below for history Neurological: Alzheimer's disease EENT: NONE Cardiovascular: hypertension Respiratory: NONE Gastrointestinal: diverticulitis Hepatic: NONE Renal: NONE Musculoskeletal: falls Psychiatric: depression Endocrine: hypothyroidism Blood Disorders: NONE Cancer(s): NONE History of MRSA: No History of VRE: No History of CDIFF: Yes Influenza Vaccine: 03/15/16 Surgical History Surgical History: none Psychosocial History Who do you live with Daughter Services at Home None What is your primary language Indian Tobacco Use: Quit >30 days ago Family History Family History, If Any: Relation not specified for: FH: hypertension Hx Contributory? No (JENNIFER LAU) Review of Systems Review of Systems Constitutional: Reports: fever, malaise. Comments Review of systems: See HPI, All other systems negative. Constitutional, no weight loss HEENT: No visual changes no sore throat no congestion Cardiovascular: No chest pain ,palpitation Skin, no jaundice no rashes Respiratory: No dyspnea cough sputum or hemoptysis GI: No nausea no vomiting : No dysuria No hematuria Muscle skeletal: no neck pain, Neurologic: No numbness no confusion Psych: No stress anxiety or depression,. Heme/endocrine: No bruising no bleeding no polyuria or polydipsia Immunology: No splenectomy or history of AIDS (JENNIFER LAU) Physical Exam Physical Exam General Appearance: well developed/nourished, no apparent distress, alert, awake , comfortable Gastrointestinal: soft, tenderness Comments: Well-developed well-nourished person in no acute distress HEENT: Nose is atraumatic. External auditory canal and Tympanic membranes clear. Pharynx normal. No swelling or edema. No signs of pallor in the palpable conjunctiva. Neck: Supple, no lymphadenopathy, normal range of motion without pain or tenderness Back: Nontender, no CVA tenderness. Full range of motion Cardiovascular: Regular rate and rhythms no murmurs rubs or gallops, normal JVP Respiratory: Chest nontender. No respiratory distress.breath sounds clear to auscultation bilaterally Abdomen: Soft, TENDER TO PALPATION IN THE LOWER QUADRANTS BILATERALLY WITH MILD GUARDING, nondistended, no appreciable organomegaly. Normal bowel sounds. No ascites Extremity: Very mild Nonpitting edema noted to her extremities bilaterally, no calf tenderness to palpation, normal and equal pulses. Neuro: Alert oriented x3 Skin: No appreciable rash on exposed skin, skin is warm , very dry. Positive mild tenting noted on the hands bilaterally. UNABLE TO IDENTIFY RASH OVER FLANK WHERE PAIN IS. Psych: Mood and affect is normal, memory is poor. Core Measures ACS in differential dx? No Severe Sepsis Present: No Septic Shock Present: No (REMBERTO CARR,JENNIFER) Progress Differential Diagnosis: UTI/pyelo, APPENDICITIS, INFLAMMATORY BOWEL DISEASE, c. DIFFICILE, DIVERTICULITIS, DIVERTICULOSIS, PANCREATITIS, SHINGLES, uti, KIDNEY STONE, HYDRONEPHROSIS, PYELONEPHRITIS, ISCHEMIC BOWEL, NONSPECIFIC COLITIS Plan of Care: Orders Procedure Date/time Status CULTURE,STOOL 06/19 818 Active C.DIFFICILE 06/19 818 Active URINALYSIS 06/19 818 Complete LACTIC ACID 06/19 818 Complete COMPREHENSIVE METABOLIC PANEL 06/19 818 Complete CBC WITHOUT DIFFERENTIAL 06/19 818 Complete Laboratory Tests 06/19/16 1119: Lactic Acid Cancelled 06/19/16 1035: Urine Color YEL, Urine Clarity CLEAR, Urine pH 6.5, Ur Specific [place] <= 1.005 , Urine Protein NEG, Urine Ketones NEG, Urine Nitrite NEG, Urine Bilirubin NEG, Urine Urobilinogen 0.2, Ur Leukocyte Esterase TRACE H, Ur Microscopic SEDIMENT EXAMINED, Urine RBC 3-5, Urine WBC 3-5 H, Urine Crystals 1+ CA OX H, Urine Hemoglobin MOD H, Urine Glucose NEG 06/19/16 0840: Anion Gap 11, Estimated GFR 53 L, BUN/Creatinine Ratio 11.0, Glucose 99, Lactic Acid 1.7, Calcium 8.8, Total Bilirubin 0.7, AST 21, ALT 30, Alkaline Phosphatase 59, Total Protein 6.0 L, Albumin 3.4 L, Globulin 2.6, Albumin/Globulin Ratio 1.3, CBC w Diff NO MAN DIFF REQ, RBC 3.80 L, MCV 84.6, MCH 28.1, RDW 14.1, MPV 7.9, Gran % 75.0, Lymphocytes % 14.3 L, Monocytes % 10.2 H, Eosinophils % 0.2, Basophils % 0.3, Absolute Granulocytes 8.7 H, Absolute Lymphocytes 1.7, Absolute Monocytes 1.2 H, Absolute Eosinophils 0, Absolute Basophils 0, PUBS MCHC 33.2 Microbiology 06/19 844 STOOL: Clostridium difficile Toxin A & B - RES CLOSTRIDIUM DIFFICILE 06/19 844 STOOL: Stool Culture - RES Diagnostic Imaging: Viewed by Me: CT Scan. Discussed w/RAD: CT Scan. Radiology Impression: PATIENT: ANSHUL LUNA PRESENT AGE: 85 PATIENT ACCOUNT NO: [id number] : 32 LOCATION: [facility] ORDERING PHYSICIAN: JENNIFER CARR SERVICE DATE: 06/19/16 EXAM TYPE: CAT - CT ABD & PELVIS W IV CONTRAST EXAMINATION: CT ABDOMEN AND PELVIS WITH CONTRAST CLINICAL INFORMATION: Diverticulitis. COMPARISON: CT scan of the abdomen and pelvis 05/01/2016. TECHNIQUE: Multidetector volumetric imaging was performed of the abdomen and pelvis before and after the IV administration of 94 mL of Optiray 320 intravenous contrast. Sagittal and coronal reformatted images were obtained on the technologist's workstation. DLP: 418.17 mGy-cm FINDINGS: LUNG BASES: There is minimal subsegmental atelectasis within the left lower lobe. There is no pericardial effusion. LIVER, GALLBLADDER, AND BILIARY TREE: Liver attenuation and enhancement is homogeneous. There is no discrete hepatic mass. No abnormal intrahepatic biliary ductal dilatation. The gallbladder is normal. No abnormal perihepatic fluid collection. PANCREAS: Unremarkable. SPLEEN : Unremarkable. ADRENAL GLANDS: Unremarkable. KIDNEYS AND URETERS: There is symmetric corticomedullary enhancement within both kidneys. No hydroureteronephrosis. No abnormal mass or calcification is visualized along the expected course of either or ureter. BLADDER: The urinary bladder is physiologically distended with fluid. GASTROINTESTINAL TRACT: There is inflammatory stranding surrounding a thickened segment of the sigmoid colon for instance best illustrated on coronal image 39 of 94 series 602. There is no evidence of a diverticular abscess and no free intraperitoneal air or fluid. Mild nonspecific thickening of the cecum is also demonstrated with nonspecific stranding within the adjoining fat. There is a small hiatal hernia. The stomach and small bowel are otherwise unremarkable. ABDOMINAL WALL: No significant hernia is appreciated. LYMPH NODES: There are a few small reactive lymph nodes visualized within the mesentery. No pathologically enlarged mesenteric or retroperitoneal lymph nodes are evident. VASCULAR: There is ectasia of the infrarenal abdominal aorta with a maximal diameter of approximately 2.4 cm. Heavily calcified plaque involves the abdominal aorta and iliac vessels. Inferior vena cava is unremarkable. PELVIC VISCERA: There is an atrophic anteverted uterus. No worrisome adnexal mass. OSSEOUS STRUCTURES: There is no worrisome lytic or blastic osseous lesion. There is multilevel degenerative spondylosis of lumbar spine with narrowing of the intervertebral disc spaces and sclerotic degenerative endplate changes at multiple levels. No evidence of acute fracture. IMPRESSION: There are inflammatory changes surrounding a thickened segment of the sigmoid colon. These most likely represent a manifestation of sigmoid diverticulitis. The possibility of other infectious or inflammatory colitides cannot be excluded on the basis of this examination particularly given the presence of mild inflammatory thickening within the cecum. There is no discrete diverticular abscess. No free intraperitoneal air or fluid. DICTATED BY : MARIA DOLORES PEREZ,ATTILA Pierce DATE/TIME DICTATED:06/19/16955 Initial ED EKG: none Comments: 06/19/2016 8:47:29 AM patient is well-appearing in no acute distress, skin is slightly dry with positive tenting, vitals within normal range afebrile. She does have lower abdominal pain on exam with guarding. Due to recent history of C. difficile it is likely that it has returned. We'll assess a stool sample. Since patient has not been eating or drinking as much as normal patient has CBC, CMP, urinalysis performed. IV fluids initiated. Declines pain medication at this time. 06/19/2016 11:29:35 AM patient informed of all lab work results and imaging study results. Patient feeling well. On reevaluation patient is having no abdominal pain on exam. Patient was seen and evaluated by Dr. Cheng as well and he found similar results. This is likely a recurrence of C. difficile. She has an appointment next week 3 times a day. Patient will be started on vancomycin by mouth again. She was instructed to return for any fevers worsening abdominal pain worsening diarrhea or concerns at any point while being treated as an outpatient. She is currently afebrile and nontoxic appearing. FAMILY IS compliant and agreeable to this plan. (JENNIFER LAU) Departure Departure Time of Disposition: 1123 Disposition: HOME OR SELF CARE Condition: Stable Clinical Impression Primary Impression: Colitis Referrals: MELCHOR PEREZ,PARISH (PCP/Family) Additional Instructions: Follow-up with your primary care physician as well as your appointment next week with gastroenterology. Take vancomycin as prescribed. Increase fluids. Return if he develop any fevers worsening abdominal pain, if the diarrhea does not improve or concerns. Departure Forms: Customer Survey General Discharge Information Prescriptions: Current Visit Scripts Vancomycin HCl (Vancocin HCl) 1 TAB PO 4 TIMES/DAY #40 TAB (JENNIFER LAU) PA/MEDICAL AFFAIRS SPECIALIST Co-Sign Statement Statement: ED Attending supervision documentation- [X] I saw and evaluated the patient. I have also reviewed all the pertinent lab results and diagnostic results. I agree with the findings and the plan of care as documented in the PA's/MEDICAL AFFAIRS SPECIALIST's documentation. [] I have reviewed the ED Record and agree with the PA's/MEDICAL AFFAIRS SPECIALIST's documentation. [] Additions or exceptions (if any) to the PAs/MEDICAL AFFAIRS SPECIALIST's note and plan are summarized below: [] (SU CHENG DO)
[2016-06-19 09:07] LABS: ABSOLUTE BASOPHIL COUNT 0 /CUMM (0.0-0.2); ABSOLUTE EOSINOPHIL COUNT 0 /CUMM (0.0-0.7); ABSOLUTE GRANULOCYTE CT 8.7 /CUMM (1.4-6.5); ABSOLUTE LYMPH COUNT 1.7 /CUMM (1.2-3.4); ABSOLUTE MONOCYTE COUNT 1.2 /CUMM (0.10-0.60); BASOPHIL % 0.3 % (0.0-2.0); EOSINOPHIL % 0.2 % (0-5); HEMATOCRIT 32.2 % (37-47); MEAN CORPUSCULAR HGB 28.1 PG (27.0-31.0); MEAN CORPUSCULAR HGB CONC 33.2 G/DL (33.0-37.0); MEAN CORPUSCULAR VOLUME 84.6 FL (81.0-99.0); MEAN PLATELET VOLUME 7.9 FL (7.4-10.4); PLATELET COUNT 219 /CUMM (130-400); RBC DISTRIBUTION WIDTH 14.1 % (11.5-14.5); WHITE BLOOD CELL COUNT 11.6 /CUMM (4.8-10.8)
--- NOTE | 2016-06-19 10:11 | CT SCAN REPORT ---
EXAMINATION: CT ABDOMEN AND PELVIS WITH CONTRAST CLINICAL INFORMATION: Diverticulitis. COMPARISON: CT scan of the abdomen and pelvis 05/01/2016. TECHNIQUE: Multidetector volumetric imaging was performed of the abdomen and pelvis before and after the IV administration of 94 mL of Optiray 320 intravenous contrast. Sagittal and coronal reformatted images were obtained on the technologist's workstation. DLP: 418.17 mGy-cm FINDINGS: LUNG BASES: There is minimal subsegmental atelectasis within the left lower lobe. There is no pericardial effusion. LIVER, GALLBLADDER, AND BILIARY TREE: Liver attenuation and enhancement is homogeneous. There is no discrete hepatic mass. No abnormal intrahepatic biliary ductal dilatation. The gallbladder is normal. No abnormal perihepatic fluid collection. PANCREAS: Unremarkable. SPLEEN: Unremarkable. ADRENAL GLANDS: Unremarkable. KIDNEYS AND URETERS: There is symmetric corticomedullary enhancement within both kidneys. No hydroureteronephrosis. No abnormal mass or calcification is visualized along the expected course of either or ureter. BLADDER: The urinary bladder is physiologically distended with fluid. GASTROINTESTINAL TRACT: There is inflammatory stranding surrounding a thickened segment of the sigmoid colon for instance best illustrated on coronal image 39 of 94 series 602. There is no evidence of a diverticular abscess and no free intraperitoneal air or fluid. Mild nonspecific thickening of the cecum is also demonstrated with nonspecific stranding within the adjoining fat. There is a small hiatal hernia. The stomach and small bowel are otherwise unremarkable. ABDOMINAL WALL: No significant hernia is appreciated. LYMPH NODES: There are a few small reactive lymph nodes visualized within the mesentery. No pathologically enlarged mesenteric or retroperitoneal lymph nodes are evident. VASCULAR: There is ectasia of the infrarenal abdominal aorta with a maximal diameter of approximately 2.4 cm. Heavily calcified plaque involves the abdominal aorta and iliac vessels. Inferior vena cava is unremarkable. PELVIC VISCERA: There is an atrophic anteverted uterus. No worrisome adnexal mass. OSSEOUS STRUCTURES: There is no worrisome lytic or blastic osseous lesion. There is multilevel degenerative spondylosis of lumbar spine with narrowing of the intervertebral disc spaces and sclerotic degenerative endplate changes at multiple levels. No evidence of acute fracture. IMPRESSION: There are inflammatory changes surrounding a thickened segment of the sigmoid colon. These most likely represent a manifestation of sigmoid diverticulitis. The possibility of other infectious or inflammatory colitides cannot be excluded on the basis of this examination particularly given the presence of mild inflammatory thickening within the cecum. There is no discrete diverticular abscess. No free intraperitoneal air or fluid.
[2016-06-19] MEDS ORDERED: VANCOCIN HCL125 MG PO (11:24)
[2016-06-19 11:56] VITALS: BP 142/76
== END 2016-06-19 11:56 ==
LOC: ERH 07:49
PROVIDERS: Physician Assistant
DX: K52.9 Noninfective gastroenteritis and colitis, unspecified (principal); I10 Essential (primary) hypertension; E03.9 Hypothyroidism, unspecified; Z87.891 Personal history of nicotine dependence; R50.9 Fever, unspecified; R10.30 Lower abdominal pain, unspecified
CPT/HCPCS: 74177; 81001; 87045; 96360